=== PATIENT | female | born 1940 | race Caucasian/White ===

== ENCOUNTER 2018-04-16 13:07 | Emergency (ER) | payer MEDICARE ==
[2018-04-16 14:54] LABS: #Basophils 0.1 thou/uL (0.0-0.2); #Eosinphils 0.2 thou/uL (0.0-0.7); #Monocytes 0.5 thou/uL (0.11-0.59); #Neutrophils 9.1 thou/uL (1.40-6.50); %Basophils 0.8 % (0.0-1.0); %Eosinophils 1.3 % (0.0-10.0); %Lymphocytes 23.1 % (21.0-51.0); %Monocytes 4.2 % (0.0-10.0); %Neutrophils 70.6 % (42.0-75.0); Hemoglobin 14.4 g/dL (12.0-16.0); Mean Corpuscular HGB CONC 31.3 g/dL (32.0-36.0); Mean Corpuscular Hemoglobin 28.3 pg (27.0-31.0); Mean Corpuscular Volume 90.3 fL (78.0-98.0); Mean Platelet Volume 8.2 fL (7.4-10.4); Platelet Count 699 thou/uL (130-400); RBC Distribution Width 15.8 % (11.5-14.5); Red Blood Cell (RBC) Count 5.09 mill/uL (4.20-5.40); White Blood Cell (WBC) Count 12.9 thou/uL (4.8-10.8)
[2018-04-16 15:02] LABS: INR-International Normal Ratio 1.1; Prothrombin Time 13.9 SEC (12.0-14.7)
[2018-04-16 15:14] LABS: ALT (SGPT) 12 U/L (8-55); AST (SGOT) 15 U/L (5-34); Albumin 3.9 g/dL (3.4-4.8); Alkaline Phosphatase 87 U/L (40-150); Anion Gap 11 mmol/L (10-20); BUN (Urea Nitrogen) 13 mg/dL (9.8-20.1); Bilirubin, Total 0.5 mg/dL (0.2-1.2); Calc. Creatinine Clearance 0 mL/min (70-130); Calcium 9.7 mg/dL (7.8-10.44); Carbon Dioxide 23 mmol/L (23-31); Chloride 107 mmol/L (98-107); Estimated GFR-MDRD 71; Globulin 2.9 g/dL (2.4-3.5); Glucose 99 mg/dL (83-110); Lipase 12 U/L (8-78); Potassium 4.1 mmol/L (3.5-5.1); Protein, Total 6.8 g/dL (6.0-8.3); Sodium 137 mmol/L (136-145)
--- NOTE | 2018-04-16 15:15 | CT ---
CT BRAIN PERFORMED WITHOUT CONTRAST ENHANCEMENT: Date: 04/16/18 HISTORY: Patient fell on and hit head. Persistent pain. FINDINGS: There is generalized ventricular and sulcal prominence. There is decreased attenuation to the periven tricular white matter consistent with some chronic white matter change. There are no signs of intrace rebral hemorrhage or extra-axial fluid collections. The mastoid air cells and visualized sinuses are clear. IMPRESSION: No acute intracranial abnormalities. POS: [facility]
[2018-04-16 15:21] LABS: CKMB 1.2 ng/mL (0-6.6); Troponin I Less than 0.010 ng/mL (< 0.028)
--- NOTE | 2018-04-16 15:24 | CT ---
CT OF CERVICAL SPINE PERFORMED WITHOUT CONTRAST ENHANCEMENT: Date: 04/16/18 HISTORY: Patient fell on , now with neck pain. FINDINGS: Vertebral bodies are normal in height. There is degenerative disc narrowing at C3-4, C4-5, and C5-6. There are also degenerative facet changes present. The facets are in normal alignment. At the C3-4 le david, there is bilateral foraminal narrowing, which is worse on the left, and left-sided foraminal sakina rowing at C5-6. There is no significant central canal stenosis and there is no CT evidence for fractu re. There is some biapical parenchymal scarring noted and some emphysematous appearing lung changes. Slight heterogeneity to the thyroid gland is noted. IMPRESSION: No CT evidence of fracture of the cervical spine. Other incidental findings as noted above. POS: [facility]
--- NOTE | 2018-04-16 15:43 | RAD ---
FOUR VIEWS LEFT KNEE: DATE: 04/16/18. HISTORY: Fall from standing. Trauma to bilateral knees. FINDINGS: There is no fracture or dislocation seen. No joint space narrowing is seen involving the left knee. No joint effusion is appreciated on this exam. On the AP projection, there is a thin curvilinear me tallic density overlying the medial subcutaneous soft tissues left knee suggesting a metallic foreign body. This is only seen on AP and oblique images and not confirmed on the lateral projection. IMPRESSION: 1. No acute osseous abnormality. 2. Findings suggestive of a thin linear metallic foreign body in the medial subcutaneous soft tissue s left knee. Clinical correlation is suggested as this could be related to overlying artifact. POS: [facility]
--- NOTE | 2018-04-16 15:44 | RAD ---
RIGHT HAND 3 VIEWS: HISTORY: Fall with hand injury. FINDINGS: There are arthritic changes of the hand and wrist. There are no signs of fracture or dislocation. IMPRESSION: No evidence of fracture. POS: [facility]
--- NOTE | 2018-04-16 15:45 | RAD ---
RIGHT ANKLE 3 VIEWS: HISTORY: The patient fell while losing balance. Posttraumatic pain. FINDINGS: There is bone demineralization. No fracture. No cortical irregularity. No periosteal reaction. No significant soft tissue swelling. IMPRESSION: Mild bone demineralization. No posttraumatic change. POS: [facility]
--- NOTE | 2018-04-16 15:45 | RAD ---
RIGHT SHOULDER THREE VIEWS: HISTORY: Fall with shoulder pain. FINDINGS: There are arthritic changes of the AC and glenohumeral joint. The bones appear somewhat demineralize d. Surgical clips are seen in the axilla. There are no signs of fracture or dislocation. IMPRESSION: No evidence of fracture. POS: [facility]
--- NOTE | 2018-04-16 15:46 | RAD ---
AP PELVIS: HISTORY: Pelvic pain, status post fall. FINDINGS: The bones are demineralized. Arthritic changes of the lower lumbar spine and of both hips are presen t. No evidence of fracture of the bony pelvic ring. IMPRESSION: No evidence of fracture. POS: [facility]
--- NOTE | 2018-04-16 15:49 | RAD ---
FOUR VIEWS RIGHT KNEE: DATE: 04/16/18. HISTORY: Loss of balance and fell from standing on . Hit head on doorframe. FINDINGS: There is a linear metallic density overlying the soft tissues at the lateral aspect distal right lowe r extremity just above the level of the femoral condyles only seen on AP and oblique images. However , this has a similar appearance to metallic density seen on views of the left knee and this could pot entially be artifactual as opposed to a metallic foreign body. There is no fracture or dislocation involving the right knee. No joint effusion is appreciated. IMPRESSION: 1. Thin curvilinear metallic density overlying the medial subcutaneous soft tissues of the right kne e just above the level of the femoral condyles. However, a similar finding was seen on views of the left knee and this could be artifactual as opposed to a metallic foreign body, although this cannot b e entirely excluded. 2. No acute osseous abnormality right knee. POS: [facility]
[2018-04-16 16:17] LABS: Bilirubin Negative (Negative); Blood, Urine Small (Negative); Clarity CLOUDY (Clear); Glucose, Urine (Dipstick) Negative (Negative); Leukocyte Large (Negative); Nitrite Positive (Negative); Protein, Urine (Dipstick) Trace mg/dL (Neg-Trace); Specific Gravity, Urine 1.008 (1.002-1.036); Urobilinogen 0.2 mg/dL (0.2-1.0); pH, Urine 5.5 (5.0-9.0)
[2018-04-16 16:20] LABS: Bacteria/HPF 4+ HPF (None Seen); Hyaline Casts/LPF 7-10 HYALINE CAST LPF (0-3 Hyaline); Pathc Cast-AUWi Flag 0.87 (0-2.49); RBC/HPF 0-3 HPF (0-3); Squamous Epithelial 0-3 HPF (0-3)
--- NOTE | 2018-04-21 13:22 | EKG ---
Test Reason : Blood Pressure : / mmHG Vent. Rate : 071 BPM Atrial Rate : 071 BPM P-R Int : 172 ms QRS Dur : 138 ms QT Int : 440 ms P-R-T Axes : 024 -57 008 degrees QTc Int : 478 ms Normal sinus rhythm Left axis deviation Left ventricular hypertrophy with QRS widening Abnormal ECG Confirmed by VÍCTOR HU ([id number]), magazine editor GUEVARA CASTRO ([id number]) on 04/21/2018 1:22:00 PM Referred By: Confirmed By:VÍCTOR HU
== END 2018-04-16 17:31 | disposition home or self-care (01) ==
LOC: ERS 13:07
DX: M25.571 Pain in right ankle and joints of right foot (principal); M25.561 Pain in right knee; M25.562 Pain in left knee; M79.641 Pain in right hand; M25.511 Pain in right shoulder; N39.0 Urinary tract infection, site not specified; I10 Essential (primary) hypertension; W19.XXXA Unspecified fall, initial encounter
CPT/HCPCS: 36415; 70450; 72125; 72170; 80053; 81003; 81015; 82553; 83690; 84484; 85025; 85610; 85730; 87077; 87086; 87186; 93005

== ENCOUNTER 2018-04-23 03:21 | Inpatient (IN) | payer MEDICARE ==
[2018-04-23] MEDS ORDERED: Acetaminophen 500 MG TAB ONE (03:45)
[2018-04-23] MEDS ORDERED: Ondansetron HCl/PF 4 MG/2 ML Vial ONE (04:01)
[2018-04-23] MEDS ORDERED: Levofloxacin 500 mg/D5W 100 ml Premix Bag ONE (04:24)
[2018-04-23 04:44] LABS: Hemoglobin 14.4 g/dL (12.0-16.0); Mean Corpuscular HGB CONC 31.5 g/dL (32.0-36.0); Mean Corpuscular Hemoglobin 27.8 pg (27.0-31.0); Mean Corpuscular Volume 88.3 fL (78.0-98.0); Mean Platelet Volume 8.8 fL (7.4-10.4); Platelet Count 366 thou/uL (130-400); Red Blood Cell (RBC) Count 5.17 mill/uL (4.20-5.40); White Blood Cell (WBC) Count 9.1 thou/uL (4.8-10.8)
[2018-04-23 04:50] LABS: INR-International Normal Ratio 1.2; Prothrombin Time 15.4 SEC (12.0-14.7)
[2018-04-23 04:51] LABS: PTT 34.9 SEC (22.9-36.1)
[2018-04-23 04:56] LABS: CKMB 0.3 ng/mL (0-6.6); Troponin I Less than 0.010 ng/mL (< 0.028)
[2018-04-23 04:57] LABS: ALT (SGPT) 23 U/L (8-55); AST (SGOT) 25 U/L (5-34); Albumin 3.7 g/dL (3.4-4.8); Alkaline Phosphatase 124 U/L (40-150); Anion Gap 13 mmol/L (10-20); BUN (Urea Nitrogen) 18 mg/dL (9.8-20.1); Bilirubin, Total 1.5 mg/dL (0.2-1.2); CK (CPK) 36 U/L (29-168); Calc. Creatinine Clearance 0 mL/min (70-130); Calcium 9.2 mg/dL (7.8-10.44); Carbon Dioxide 23 mmol/L (23-31); Chloride 101 mmol/L (98-107); Estimated GFR-MDRD 73; Globulin 2.8 g/dL (2.4-3.5); Glucose 157 mg/dL (83-110); Magnesium 1.6 mg/dL (1.6-2.6); Potassium 3.6 mmol/L (3.5-5.1); Protein, Total 6.5 g/dL (6.0-8.3); Sodium 133 mmol/L (136-145)
[2018-04-23 05:00] LABS: Band 4 % (5-11); Lymphocytes 6 % (21-51); MDiff Complete? YES; Monocytes 4 % (0-10); Neutrophil 86 % (42-75); PLT Morphology Comment Appears Adequate; RBC Morphology Normal
[2018-04-23 05:16] LABS: Bilirubin Negative (Negative); Blood, Urine Negative (Negative); Clarity CLOUDY (Clear); Glucose, Urine (Dipstick) Negative (Negative); Leukocyte Negative (Negative); Nitrite Negative (Negative); Protein, Urine (Dipstick) 100 mg/dL (Neg-Trace); Urobilinogen 0.2 mg/dL (0.2-1.0); pH, Urine 5.5 (5.0-9.0)
[2018-04-23 05:19] LABS: Bacteria/HPF None Seen HPF (None Seen); Pathc Cast-AUWi Flag 2.18 (0-2.49); RBC/HPF 0-3 HPF (0-3)
[2018-04-23 05:21] LABS: Yeast-AUWi Flag 164.7 (0-25.0)
[2018-04-23 05:24] LABS: Specific Gravity, Urine 1.053 (1.002-1.036)
--- NOTE | 2018-04-23 05:32 | PDOC.FPRHP ---
Addendum entered and electronically signed by Lucas Artis MD 04/23/18 08:00: Addendum upper level attestation 77F with 1 week history of right leg weakness and generalized malaise. She was seen 1 week ago for malaise. She was found to have a UTI and treated for it. She now denies any symptom with dysuria or frequency. Today, she came in because she had a mechanical fall. She felt her right leg give out. She fell to her knee, did not hit her head, had no loss of consciousness. She was then brought to ER. She incidentally complains about mild abd pain. ER did a CT scan of abdomen that found diverticulitis and cystitis. CT brain found no abnormaliteis. Pertinent Physical Gen: Alert, oriented CV: RRR 2/6 systolic murmur, right sided bruit HEENT: Dry mucosal membrane Resp: CTA bilaterally Neuro: CN II-XII grossly intact, Strength 4/5 in right LE, sensation grossly intact 1. RLE weakness - Stroke rule out. As patient has recent CT with contrast, will obtain MRI without contrast and carotid doppler. Consult Neuro for recs. NIHSS assessment q 4hr. Will start on Aspirin and atorvastatin 2. Diverticulitis - Will treat on monotheapy of zosyn at this time, consider transition to augmentin for finishing PO course 3. Crohns disease - Known issue, not in crohns flare at this time. CT abd/pelvis found no sign of this. 4. Polycethemia vera - Continue hydroxyurea. Risk factor for stroke. 5. Hypovolemia - Patient urine SG is elevated and dry mucosal membrane Plan to encourage increased oral intake 6. HTN - Hx of HTN. At this time, allow permissive HTN. Original Note: - History of Present Illness Chief Complaint: Weakness History of Present Illness: Ms. Dowling presents to the ED today with a 1 week history of Leg weakness and general fatigue. She was seen in the ED 7 days ago and treated for a UTI. She denies having any burning with urination or frequency. She does report some abdominal pain and vomiting, a headache, fever/chills, and neck pain. Denies diarrhea or constipation, syncope, dysequilibrium, chest pain, or palpitations. She recently moved here to live in her daughters house while [place]. She has a history of crohns disease with a total colectomy, diverticulosis. ED Course: CT brain/abdomen/pelvis, CBC/CMP, UA with Cx, PTT/PT/INR, BCx, EKG, BNP, LA - History PMHx: Crohn's, PCV PSHx: colectomy, cholecystectomy, FHx: MS Social: recently moved from [place] - Review of Systems General: reports: fever/chills, weight/appetite/sleep changes Eyes: denies: vision changes ENT: denies: nasal congestion Respiratory: denies: cough, shortness of breath Cardiovascular: denies: chest pain, palpitation Gastrointestinal: reports: nausea, vomiting. denies: diarrhea, constipation Genitourinary: reports: incontinence. denies: dysuria, polyuria Skin: denies: rashes, lesions, jaundice Musculoskeletal: reports: pain, tenderness Neurological: reports: weakness. denies: numbness, syncope - Vital signs BP: [139/72] HR: [90] RR: [16] Tmax: [101.2] Pox: [96]% on [RA] Wt: [81.65kg] - Physical Exam Constitutional: NAD, awake, alert and oriented (x3) HEENT: normocephalic and atraumatic, EOMI, grossly normal vision, grossly normal hearing, MMM Neck: supple, trachea midline Chest: no-tender to palpation, no lesions Heart: RRR, other (systolic murmur) Lungs: CTAB, no respiratory distress, good air movement Abdomen: soft, bowel sounds present, other (tenderness over lower abdomen) Musculoskeletal: normal structure, ROM grossly normal Neurological: CN II-XII intact, other (R LE 4/5 strength) Skin: no rash/lesions, good turgor Heme/Lymphatic: no unusual bruising or bleeding, no petechia Psychiatric: normal mood and affect FMR H&P: Results - Labs Result Diagrams: 04/23/18 04:17 04/23/18 04:17 Lab results: WBC 9.1 thou/uL (4.8-10.8) 04/23/18 04:17 Hgb 14.4 g/dL (12.0-16.0) 04/23/18 04:17 Hct 45.6 % (36.0-47.0) 04/23/18 04:17 MCV 88.3 fL (78.0-98.0) 04/23/18 04:17 Plt Count 366 thou/uL (130-400) 04/23/18 04:17 Band Neuts % (Manual) 4 % (5-11) L 04/23/18 04:17 Sodium 133 mmol/L (136-145) L 04/23/18 04:17 Potassium 3.6 mmol/L (3.5-5.1) 04/23/18 04:17 Chloride 101 mmol/L (98-107) 04/23/18 04:17 Carbon Dioxide 23 mmol/L (23-31) 04/23/18 04:17 BUN 18 mg/dL (9.8-20.1) 04/23/18 04:17 Creatinine 0.77 mg/dL (0.6-1.1) 04/23/18 04:17 Glucose 157 mg/dL (83-110) H 04/23/18 04:17 Lactic Acid 1.0 mmol/L (0.5-2.2) 04/23/18 04:17 Calcium 9.2 mg/dL (7.8-10.44) 04/23/18 04:17 Total Bilirubin 1.5 mg/dL (0.2-1.2) H 04/23/18 04:17 AST 25 U/L (5-34) 04/23/18 04:17 ALT 23 U/L (8-55) 04/23/18 04:17 Alkaline Phosphatase 124 U/L (40-150) 04/23/18 04:17 Creatine Kinase 36 U/L (29-168) 04/23/18 04:17 CK-MB (CK-2) 0.3 ng/mL (0-6.6) 04/23/18 04:17 B-Natriuretic Peptide 118.8 pg/mL (0-100) H 04/23/18 04:17 Serum Total Protein 6.5 g/dL (6.0-8.3) 04/23/18 04:17 Albumin 3.7 g/dL (3.4-4.8) 04/23/18 04:17 FMR H&P: A/P - Problem List (1) Weakness of right leg Current Visit: Yes Status: Acute Code(s): R29.898 - OT SYMPTOMS AND SIGNS INVOLVING THE MUSCULOSKELETAL SYSTEM (2) Diverticulitis Current Visit: Yes Status: Acute Code(s): K57.92 - DVTRCLI OF INTEST, PART UNSP, W/O PERF OR ABSCESS W/O BLEED (3) Crohn's disease Current Visit: Yes Status: Acute Code(s): K50.90 - CROHN'S DISEASE, UNSPECIFIED, WITHOUT COMPLICATIONS (4) Polycythemia vera Current Visit: Yes Status: Acute Code(s): D45 - POLYCYTHEMIA VERA - Plan 1. RLE weakness - present for one week, possibility of ischemic stroke - MRI brain - neurology consult - monitor vital signs, permissive hypertension - outside of TPN windo - consider ASA, statin treatment - order lipids 2. Diverticulitis - hx of diverticulosis and crohn's, +CT abdomen, no abcess - allergic to metronidazole, IV zosyn 3.3756 g q6hr - consider GI consult for possible Colovesicular fistula causing UTI 3. Crohns disease - chronic in nature, untreated 4. Polycethemia vera - controlled, continue home meds 5. volume depleted - NS 120ml/hr - monitor vital signs - repeat CBC/CMP in 24 hrs Disposition/LOS: stroke r/o, treat for diverticulitis, observation on stroke floor, possible dc tomorrow FMR H&P: Upper Level - Plan Date/Time: 04/23/18 [id number] I, [], have evaluated this patient and agree with findings/plan as outlined by recruitment internship resident. Pertinent changes/additions are listed here. 1. RLE weakness 2. Diverticulitis 3. Crohns disease 4. Polycethemia vera 5. volume depleted 6. HTN Attending Addendum - Attending Addendum Date/Time: 04/23/18 1001 I personally evaluated the patient and discussed the management with Dr. Gore. I agree with the History, Examination, Assessment and Plan documented above with any addition or exceptions noted below. The patient presents with worsening weakness. Pt is a poor historian and has trouble with recall during my visit. She states her rle has been weak for 10 years but within past week has worsened. She began vomiting this morning during our interview. She will have mri, carotid doppler and echo for stroke workup. PT/OT consult. Diverticulitis noted on CT scan. Treating with zosyn. Pt unable to lift right leg off of bed.
[2018-04-23 05:39] LABS: Trichomonas/HPF None Seen HPF (None Seen); Yeast-All Forms None Seen HPF (None Seen)
[2018-04-23 05:40] LABS: Hyaline Casts/LPF 0-3 HYALINE CAST LPF (0-3 Hyaline)
--- NOTE | 2018-04-23 07:47 | RAD ---
FOUR VIEWS RIGHT KNEE: INDICATION: Fall with fever. COMPARISON: Comparison from 04/16/18 is available. FINDINGS/IMPRESSION: No acute fracture or subluxation is evident. There is stable diffuse osteopenia. The same curviline ar density previously seen overlying the anterolateral soft tissues is likely related to overlying duran rface artifact or prior foreign body that had been removed. No acute osseous abnormality is evident. POS: [facility]
--- NOTE | 2018-04-23 07:48 | RAD ---
THREE VIEWS OF THE RIGHT ANKLE: INDICATION: History of fall with fever. COMPARISON: Prior exam dated 04/16/18. FINDINGS/IMPRESSION: No definite acute fracture or subluxation is evident. The visualized hindfoot appears within normal limits. POS: [facility]
--- NOTE | 2018-04-23 07:49 | RAD ---
AP VIEW OF THE CHEST: INDICATION: History of fall and fever. COMPARISON: None. FINDINGS: No consolidation is evident. No pleural effusion is present. Heart size is accentuated by exam tech nique. Surgical clips are seen within the right axillary region. No acute osseous abnormality is ev ident. IMPRESSION: No definite acute cardiopulmonary abnormality. POS: [facility]
--- NOTE | 2018-04-23 09:40 | CT ---
PRELIMINARY REPORT/[facility]/EMERGENTY AFTER-HOURS PROCEDURE CT Abdomen and Pelvis With Intravenous Contrast EXAM DATE/TIME: 04/23/2018 4:23 AM CLINICAL HISTORY: 77 years old, female; Signs and symptoms; Nausea and vomiting; Prior surgery; Patient HX: Er 3; Pt C/ O n/v and unable to eat, as well as weakness to r leg. Pt also fell 04/13 and has had neck pain since, pt was seen in er after that fall on the and dx with uti. Surgical HX of colectomy of large int estine. Verified on 04/23/18. , Surgical history of cholecystectomy, surgical history of sect ion, notes: X1; Additional info: exam attempted twice due to iv leak during first attempt, iv stopp ed after 20-25 ml, iv was fixed and additional 70 ml of iv contrast were given TECHNIQUE: Axial computed tomography images of the abdomen and pelvis with intravenous contrast. Coronal reforma tted images were created and reviewed. COMPARISON: No relevant prior studies available. FINDINGS: Lung bases: Bibasilar dependent atelectasis ABDOMEN: Liver: Hepatomegaly measuring 18 cm. Gallbladder and bile ducts: Previous cholecystectomy with mild intrahepatic biliary dilatation. Pancreas: Unremarkable. No mass. No ductal dilation. Spleen: Splenomegaly measuring 16 cm Adrenals: Unremarkable. No mass. Kidneys and ureters: Bilateral renal hypodensities measuring up to 1.6 cm. Bilateral renal cortical s carring. No hydronephrosis. Stomach and bowel: Mildly prominent fluid filled small bowel loops without convincing evidence of sma ll bowel obstruction. There is colonic diverticulosis. Rectosigmoid anastomosis. There is mild infiltration about the proximal sigmoid colon. No mucosal thickening. PELVIS: Appendix: The appendix is normal. Bladder: Urinary bladder is under distended and thickened. There are pelvic inflammatory changes cent ered about the urinary bladder. Reproductive: Unremarkable as visualized. ABDOMEN and PELVIS: Intraperitoneal space: Unremarkable. No free air. No significant fluid collection. Bones/joints: There are degenerative changes involving the spine. No acute fracture. No dislocation. Soft tissues: Right breast prosthesis. Several small ventral hernias contain fat. Vasculature: Vascular calcification. No abdominal aortic aneurysm. Lymph nodes: Unremarkable. No enlarged lymph nodes. IMPRESSION: Findings concerning for mild acute diverticulitis involving the proximal sigmoid colon. No complicati ng features. Inflammatory changes about the urinary bladder compatible with cystitis. Additional findings as above. Thank you for allowing us to participate in the care of your patient. Dictated and Authenticated by: Miguel Antunez MD 04/23/2018 5:01 AM Central Time ([place] & [place]) FINAL REPORT CT OF THE ABDOMEN AND PELVIS WITH IV CONTRAST: INDICATION: Nausea and vomiting with a history of fall. FINDINGS: There is hepatosplenomegaly as reported in the preliminary findings. There is cholecystectomy change . There are bilateral renal hypodensities suspicious for cysts. There is 1 hyperdense lesion seen exophytically off the right mid kidney posteriorly measuring 2 cm t hat cannot be further characterized. There is a moderate amount of retained stool within the colon. There is some wall thickening and per icolonic inflammatory stranding involving the sigmoid colon just proximal to an area of anastomotic s uture line. There is wall thickening involving the bladder with surrounding inflammatory change. IMPRESSION: 1. I agree with the preliminary report provided. Findings are suspicious for cystitis as well as a noncomplicated sigmoid diverticulitis. 2. Hepatosplenomegaly. 3. Exophytic hyperdense lesion off the superior to mid aspect of the right kidney required further e valuation. Renal ultrasound may be helpful for additional characterization. CODE T POS: [facility]
--- NOTE | 2018-04-23 09:42 | CT ---
PRELIMINARY REPORT/[facility]/EMERGENTY AFTER-HOURS PROCEDURE CT Head Without Intravenous Contrast EXAM DATE/TIME: 04/23/2018 4:19 AM CLINICAL HISTORY: 77 years old, female; Injury or trauma; Fall; Initial encounter; Abrasion; Not specified; Patient HX: Ems reports pt got up to use restroom and fell down this evening around 1am due to weakness. C/O n/v and unable to eat, as well as weakness to r leg. Pt also fell 04/13 and has had neck pain since. TECHNIQUE: Axial computed tomography images of the head/brain without intravenous contrast. COMPARISON: No relevant prior studies available. FINDINGS: Brain: Decreased attenuation of the supratentorial white matter is likely secondary to chronic microv ascular ischemia. Small calcification at the left centrum semiovale, likely dystrophic. No hemorrhage . Ventricles: Ventricular and subarachnoid spaces are age appropriate. Bones/joints: Unremarkable. No acute fracture. Soft tissues: Unremarkable. Vasculature: Intracranial vascular calcification. Sinuses: Mild ethmoid sinus disease. Mastoid air cells: Unremarkable as visualized. No mastoid effusion. IMPRESSION: No acute intracranial abnormality. Thank you for allowing us to participate in the care of your patient. Dictated and Authenticated by: Miguel Antunez MD 04/23/2018 4:39 AM Central Time ([place] & [place]) FINAL REPORT CT OF THE BRAIN WITHOUT CONTRAST: INDICATION: History of fall and altered mental status. COMPARISON: Prior exam dated 04/06/18. IMPRESSION: I agree with the preliminary report provided. No acute intracranial abnormality is evident. Chronic small-vessel white matter ischemic change appears similar to the most recent comparison dated 8. POS: [facility]
[2018-04-23] MEDS: Sodium Chloride 0.9% 1,000 ML IV SCH ×3 (10:43→23:56)
[2018-04-23] MEDS: Ondansetron ODT 4 MG TAB PO PRN (10:43)
[2018-04-23] MEDS: Enoxaparin Sodium 40 MG/0.4 ML SYRINGE SC SCH (10:43)
[2018-04-23] MEDS: Acetaminophen 325 MG TAB PO PRN (10:43)
[2018-04-23] MEDS: Aspirin 81 mg Enteric Coated Tablet PO SCH (10:43)
[2018-04-23 10:58] VITALS: BMI 27.4
[2018-04-23 11:12] LABS: Lactic Acid 2.1 mmol/L (0.5-2.2)
[2018-04-23] MEDS ORDERED: Ondansetron HCl/PF 4 MG/2 ML Vial IVP PRN (11:18)
[2018-04-23] MEDS ORDERED: ISOVUE-370 76%-LOCM 1 ML ONE (12:19)
[2018-04-23] MEDS ORDERED: Labetalol HCl 100 MG/20 ML VIAL SLOW IVP PRN (13:37)
[2018-04-23] MEDS: Piperacillin/Tazobactam 3.375 GM in Sodium Chloride 0.9% 100 ML IVPB SCH ×3 (13:59→23:58)
--- NOTE | 2018-04-23 17:23 | MRI ---
MRI BRAIN WITHOUT CONTRAST: HISTORY: Altered mental status. Fall this morning. Generalized weakness. COMPARISON: None. TECHNIQUE: MRI brain is performed without intravenous Gadolinium administration. Multisequential, multiplanar i maging is performed. FINDINGS: The calvarium has a normal T1 marrow signal intensity. Midline brain parenchymal structures are unre markable. No hemorrhage on the axial gradient echo sequence. Age appropriate atrophy. Cortical mccarthy white matter differentiation is preserved. Ventricles and duran lci are patent and symmetric. There are T2 and FLAIR white matter hyperintensities due to chronic small vessel ischemic change. There is FLAIR hyperintensity with associated restricted diffusion along the posterior right corpus c allosum, posterior left lentiform nucleus, and in the left frontal subcortical white matter. Multifo lisette small infarcts are favored. There is associated restricted diffusion. Mild mucosal thickening of the paranasal sinuses. Central arterial flow voids are maintained. 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 POS: [facility]
--- NOTE | 2018-04-23 18:08 | ULT ---
BILATERAL CAROTID DUPLEX ULTRASOUND: HISTORY: Right-sided carotid bruit. TECHNIQUE: Faust-scale ultrasound with color-flow and spectral Doppler imaging of the extracranial carotid artery system is performed bilaterally. FINDINGS: There is plaque formation on both sides. The peak systolic velocity in the right ICA measures 104 cm per second with an end-diastolic velocity of 14 cm per second and a systolic ratio of 0.54. The peak systolic velocity in the left ICA measures 112 cm per second with an end-diastolic velocity of 25 cm per second and a systolic ratio of 0.82. Flow in both vertebral arteries remains antegrade. IMPRESSION: No evidence of hemodynamically significant stenosis. POS: [facility]
[2018-04-23] MEDS: Prevnar 13-Val Conj/PF 0.5 ML SYRINGE IM ONE ×2 (18:44→18:49)
[2018-04-23] MEDS: Atorvastatin Calcium 40 MG TAB PO SCH (20:10)
--- NOTE | 2018-04-24 02:07 | CON ---
DATE OF CONSULTATION: 04/23/2018 REFERRING PHYSICIAN: Rigo Gore DO REASON FOR CONSULTATION: Recent fall and right lower extremity weakness. HISTORY OF PRESENT ILLNESS: Ms. Dowling is a pleasant, 77-year-old, female, who has been consulted for evaluation of recent fall and the right lower extremity weakness. History is obtained from patient's medical chart as well as patient. She reports that she has a history of right leg giv ing out on and off for the past 20 years. She reports that she was admitted to the hospital recently for her right lower extremity weakness, at which time, she had a pelvic x-ray, cerebral spine x-ray done, which was normal, and then she was discharged to home. She reports that today she came in sharon use she fell down as her right leg give out on her, which this prompted her to present to the [facility] Emergency Room. She currently denies any headache, chest pain, palpitation, numbness, tingling, weakness, dysarthria or dysphagia. PAST MEDICAL HISTORY: Significant for Crohn disease. PAST SURGICAL HISTORY: Significant for colectomy, cholecystectomy, . FAMILY HISTORY: Significant for MS. SOCIAL HISTORY: She denies smoking, alcohol use, or illicit drug use. CURRENT MEDICATIONS: Please review MAR. ALLERGIES: Include METRONIDAZOLE. REVIEW OF SYSTEMS: As mentioned in the HPI, otherwise negative. PHYSICAL EXAMINATION: VITAL SIGNS: Blood pressure 165/71, pulse of 85, temperature of 98.5, respirations 16, O2 sats of 91 % on room air. GENERAL: Well developed, well nourished, female, in no apparent distress. RESPIRATORY: Clear to auscultation bilaterally. CARDIOVASCULAR: Regular rate and rhythm. NEUROLOGIC: Mental status: The patient is awake, alert, oriented x3. Speech and language: Fluent speech. Cranial nerves: Pupils are 3 mm and reactive. Visual pascual are intact. Extraocular muscl es are intact. Visual pascual are intact. Face is symmetric. Tongue and uvula midline. Motor exam showed normal tone and bulk with a 5/5 strength in both upper and lower extremities. Sensory: Sensa tion is intact and symmetric. Deep tendon reflex is 2+ reflexes in both upper and lower extremities. Babinski: Plantar responses flexion bilaterally. Coordination intact to [id number] and fi nger tapping bilaterally. LABORATORY DATA: Labs are reviewed, which included CBC, CMP, urinalysis, which is significant for so dium of 133. Total bilirubin of 1.5. BNP of 118.8, otherwise negative. IMAGING STUDIES: MRI of brain without contrast was reviewed. Official report is still pending. I jayden miller reviewed the scan, which did show a diffusion restriction at the right posterior parietal region and periventricularly as well as in the left basal ganglia. IMPRESSION: 1. Acute right bilateral ischemic infarct. 2. Hypertension. PLAN: Ms. Dowling is a pleasant, 77-year-old, female, presented after falling down and ri ght leg weakness. She did have MRI of brain, which does show an acute ischemic infarct involving bot h the cerebral hemisphere. This is likely cardioembolic in nature. I am waiting for the official re port by Radiology. If it does show bilateral ischemic infarct, then patient will need thoracic and t ransesophageal echocardiogram as well as possible LINQ device placement to rule out paroxysmal atrial fibrillation. I would recommend increasing her aspirin to 325 mg daily for secondary stroke prevent ion. Consult PT, OT, speech therapy. Continue supportive care. Thank you for consultation.
--- NOTE | 2018-04-24 05:28 | PDOC.FM ---
- Subjective Subjective: Pt reports she did well overnight. She denies cp, sob, n/v. She states she just feels unwell and weak. She denies any focal weakness. - Objective MAR Reviewed: Yes Vital Signs & Weight: Vital Signs (12 hours) Temp Pulse Resp BP Pulse Ox 04/24/18 04:00 99.3 F 86 16 152/59 H 98 04/24/18 00:00 99.8 F H 89 16 165/63 H 92 L 04/23/18 20:00 99.9 F H 89 16 151/54 H 92 L Weight Weight 75.432 kg I&O: 04/22/18 04/23/18 04/24/18 06:59 06:59 06:59 Intake Total 390 Balance 390 Result Diagrams: 04/24/18 05:13 04/24/18 04:52 <Paddy Giang - Last Filed: 04/24/18 09:08> - Objective Vital Signs & Weight: Vital Signs (12 hours) Temp Pulse Resp BP BP BP Pulse Ox 04/24/18 15:39 99.2 F 79 21 H 172/62 H 94 L 04/24/18 11:34 99.4 F 82 20 145/64 H 94 L 04/24/18 09:35 153/62 H 154/63 H 04/24/18 08:55 94 L 04/24/18 08:25 98.6 F 86 19 155/61 H 87 L Weight Weight 75.432 kg I&O: 04/23/18 04/24/18 04/25/18 06:59 06:59 06:59 Intake Total 2370 Balance 2370 Result Diagrams: 04/24/18 05:13 04/24/18 04:52 <Betty Portillo - Last Filed: 04/24/18 16:10> Phys Exam - Physical Examination Constitutional: NAD HEENT: moist MMs Neck: no JVD Respiratory: no wheezing, clear to auscultation bilateral Cardiovascular: RRR 2/6 systolic murmur Gastrointestinal: soft, non-tender, no distention Musculoskeletal: no edema, pulses present Pt has 3-4/5 strength in right LE, 4/5 in right UE, 5/5 on left. Neurological: non-focal, normal sensation, moves all 4 limbs Psychiatric: normal affect, A&O x 3 Mini mental status exam was 28 Skin: cap refill <2 seconds <Paddy Giang - Last Filed: 04/24/18 09:08> Dx/Plan (1) Acute CVA (cerebrovascular accident) Code(s): I63.9 - CEREBRAL INFARCTION, UNSPECIFIED Status: Acute (2) HTN (hypertension) Code(s): I10 - ESSENTIAL (PRIMARY) HYPERTENSION Status: Acute (3) Crohn's disease Code(s): K50.90 - CROHN'S DISEASE, UNSPECIFIED, WITHOUT COMPLICATIONS Status: Acute (4) Diverticulitis Code(s): K57.92 - DVTRCLI OF INTEST, PART UNSP, W/O PERF OR ABSCESS W/O BLEED Status: Acute (5) Polycythemia vera Code(s): D45 - POLYCYTHEMIA VERA Status: Acute - Plan Plan: This is a 77 yo female with a PMH of Crohns disease, polycethemia vera, and HTN CVA with right LE weakness -Pt had MRI revealing small focal infarcts. Stroke team has been consulted. We are currently allowing for permissive HTN. Neurology has been consulted and recommends RAQUEL and possible LINQ devise to r/o paroxysmal atrial fibrillation. He also recommended increasing aspirin to 325. -The nature of pt's MRI may be consistent with cardioembolic causes. Pt. spiked an isolated fever of 102.6 yesterday despite having a dose of levoquin in the ED. We have a heightened suspicion for endocarditis vs. afib. Pt. has been changed to inpatient. Diverticulitis -Confirmed by abdominal CT. We are treating with zosyn as monotherapy. The CT currently does not reveal an abscess, however if pt. has another episode of fever while on abx, I would consider repeating abdominal CT looking for a cause. There was initially a concern for colovesicular fistula however there are no signs of air in pt's bladder and urine is relatively clean. Crohns disease -Aware, currently not in a flare Polycethemia vera -Controlled. We will continue her home meds. This may be a source for her cva. Volume depleted -Resloved, pt. came in with physical exam and urine consistent with volume depletion. She has received fluids as well as PO intake. HTN -We are allowing for permissive htn. Pt. has PRN available for SBP >220 and DBP >110 Code: DNR Prophylaxis: debranox Family: Attempted to contact daughter yesterday. Per pt, she was by multiple times Disposition: Home in 2-3 days <Paddy Giang - Last Filed: 04/24/18 09:08> (1) Weakness of right leg Code(s): R29.898 - OTH SYMPTOMS AND SIGNS INVOLVING THE MUSCULOSKELETAL SYSTEM Status: Acute (2) Diverticulitis Code(s): K57.92 - DVTRCLI OF INTEST, PART UNSP, W/O PERF OR ABSCESS W/O BLEED Status: Acute (3) Crohn's disease Code(s): K50.90 - CROHN'S DISEASE, UNSPECIFIED, WITHOUT COMPLICATIONS Status: Acute (4) Polycythemia vera Code(s): D45 - POLYCYTHEMIA VERA Status: Acute <Betty Portillo - Last Filed: 04/24/18 16:10> Attending Addendum - Attending Addendum Date/Time: 04/24/18 1606 I personally evaluated the patient and discussed the management with Dr. Giang. I agree with the History, Examination, Assessment and Plan documented above with any addition or exceptions noted below. The patient's MRI was consistent with a stroke. Will consult cards for a RAQUEL. Continuing therapy and antibiotics. <Betty Portillo - Last Filed: 04/24/18 16:10>
[2018-04-24 05:45] LABS: Cardiac Risk 5.2 (Less than 4.5)
[2018-04-24 05:53] LABS: Band 14 % (5-11); Eosinophils 2 % (0-10); Hemoglobin 12.7 g/dL (12.0-16.0); Lymphocytes 15 % (21-51); MDiff Complete? YES; Mean Corpuscular HGB CONC 31.8 g/dL (32.0-36.0); Mean Corpuscular Hemoglobin 28.2 pg (27.0-31.0); Mean Corpuscular Volume 88.8 fL (78.0-98.0); Monocytes 3 % (0-10); Neutrophil 65 % (42-75); PLT Morphology Comment Appears Adequate; Platelet Count 303 thou/uL (130-400); RBC Distribution Width 16.1 % (11.5-14.5); White Blood Cell (WBC) Count 8.2 thou/uL (4.8-10.8)
[2018-04-24 05:53] LABS: Anion Gap 11 mmol/L (10-20); BUN (Urea Nitrogen) 16 mg/dL (9.8-20.1); Calc. Creatinine Clearance 68 mL/min (70-130); Calcium 8.7 mg/dL (7.8-10.44); Carbon Dioxide 23 mmol/L (23-31); Chloride 102 mmol/L (98-107); Estimated GFR-MDRD 68; Glucose 117 mg/dL (83-110); Potassium 3.1 mmol/L (3.5-5.1); Sodium 133 mmol/L (136-145)
[2018-04-24 05:55] LABS: Bilirubin, Direct 0.5 mg/dL (0.1-0.3); Bilirubin, Total 1.2 mg/dL (0.2-1.2)
[2018-04-24] MEDS: Piperacillin/Tazobactam 3.375 GM in Sodium Chloride 0.9% 100 ML IVPB SCH ×3 (06:34→18:10)
[2018-04-24] MEDS: Hydroxyurea 500 MG CAP PO SCH (10:19)
[2018-04-24] MEDS: Enoxaparin Sodium 40 MG/0.4 ML SYRINGE SC SCH (10:20)
[2018-04-24] MEDS: Aspirin 81 mg Enteric Coated Tablet PO SCH (10:24)
[2018-04-24] MEDS: Cholestyramine/Aspartame 4 gm Packet PO SCH (10:59)
[2018-04-24] MEDS: Sodium Chloride 0.9% 1,000 ML IV SCH ×2 (14:08→18:11)
[2018-04-24] MEDS ORDERED: NS IVPB SCH (18:15)
[2018-04-24] MEDS ORDERED: MAGNESIUM IVPB SCH (18:15)
[2018-04-24] MEDS ORDERED: Potassium Chloride 20 MEQ/100 ML PREMIX BAG IVPB SCH ×2 (18:30→23:15)
[2018-04-24] MEDS ORDERED: Potassium Chloride 20 MEQ TAB PO SCH (19:15)
[2018-04-24] MEDS: Atorvastatin Calcium 40 MG TAB PO SCH (20:48)
[2018-04-24] MEDS: Acetaminophen 325 MG TAB PO PRN (20:48)
--- NOTE | 2018-04-24 20:52 | CON ---
DATE OF CONSULT: 04/24/18 The patient is a pleasant 77-year-old woman who presents with weakness after falling. The patient melvin s a previous history of hypertension and a cerebrovascular accident. The patient was in her usual st ate of health when she suddenly became very weak and fell. She reports having weakness on her right side. The patient denies having any chest pain or palpitations. PAST MEDICAL HISTORY: 1. Crohn's disease. 2. Polycythemia vera. 3. Hypertension. 4. History of cerebrovascular accident. PAST SURGICAL HISTORY: History of cholecystectomy, colectomy, . SOCIAL HISTORY: Nonsmoker. FAMILY HISTORY: No strong family history of heart disease. ALLERGIES: FLAGYL. CURRENT MEDICATIONS: Cholestyramine 5 mg daily, Hydrea 500 mg daily. REVIEW OF SYSTEMS: Ten-point system otherwise unremarkable. No history of easy bruising or bleeding , bright red blood per rectum. PHYSICAL EXAMINATION: GENERAL: This is an elderly woman in no acute distress with a blood pressure of 172/62. NECK: No jugular venous distention. LUNGS: Clear to auscultation. HEART: Regular rate and rhythm, normal S1, S2. ABDOMEN: Nondistended. EXTREMITIES: Showed no edema. SKIN: Warm and dry. VASCULAR: Radial pulses are 2+. LABORATORY RESULTS: Her white blood count 8.2, hemoglobin 12.7, hematocrit 40.0, and platelets 303. Sodium was 133, potassium 3.1, chloride 102, bicarb 23, BUN was 16, creatinine 0.81. Her troponin was less than 0.01. EKG revealed normal sinus rhythm, right bundle branch block, left anterior fasci cular block and left ventricular hypertrophy. Brain MRI revealed a small focal infarcts. IMPRESSION: 1. Cerebrovascular accident. 2. Hypertension. 3. Crohn's disease. 4. Polycythemia vera. This patient presents with a recurrent cerebrovascular accident. From a cardiac standpoint, we will proceed as recommended by Neurology for a RAQUEL and a Linq placement. We will follow this patient with you through her hospitalization.
[2018-04-24] MEDS: Ondansetron ODT 4 MG TAB PO PRN (20:53)
[2018-04-25] MEDS: Sodium Chloride 0.9% 1,000 ML IV SCH ×2 (01:19→13:32)
[2018-04-25] MEDS: Piperacillin/Tazobactam 3.375 GM in Sodium Chloride 0.9% 100 ML IVPB SCH ×4 (01:19→20:53)
--- NOTE | 2018-04-25 06:45 | PDOC.FM ---
- Subjective Subjective: Pt. states she is feeling well this morning. She denies abdominal pain, dyspnea , or chest pain. Her nausea is minimal. - Objective MAR Reviewed: Yes Vital Signs & Weight: Vital Signs (12 hours) Temp Pulse Resp BP Pulse Ox 04/25/18 04:00 98.4 F 73 18 134/55 L 94 L 04/25/18 00:00 98.0 F 80 18 154/66 H 98 04/24/18 20:00 99.6 F 81 18 180/79 H 97 Weight Weight 75.432 kg I&O: 04/23/18 04/24/18 04/25/18 06:59 06:59 06:59 Intake Total 2370 2147 Balance 2370 2147 Result Diagrams: 04/24/18 05:13 04/25/18 07:02 <Paddy Giang - Last Filed: 04/25/18 13:14> - Objective Vital Signs & Weight: Vital Signs (12 hours) Temp Pulse Resp BP Pulse Ox 04/25/18 15:45 98.5 F 81 16 156/66 H 92 L 04/25/18 08:00 93 L Weight Weight 75.568 kg I&O: 04/24/18 04/25/18 04/26/18 06:59 06:59 06:59 Intake Total 2370 3137 Balance 2370 3137 Result Diagrams: 04/24/18 05:13 04/25/18 16:09 <Betty Portillo - Last Filed: 04/25/18 17:11> Phys Exam - Physical Examination Constitutional: NAD HEENT: moist MMs Respiratory: no wheezing, clear to auscultation bilateral Cardiovascular: RRR, no significant murmur Gastrointestinal: soft, positive bowel sounds Neurological: normal sensation, moves all 4 limbs Psychiatric: normal affect, A&O x 3 Skin: cap refill <2 seconds <Paddy Giang - Last Filed: 04/25/18 13:14> Dx/Plan (1) Acute CVA (cerebrovascular accident) Code(s): I63.9 - CEREBRAL INFARCTION, UNSPECIFIED Status: Acute (2) HTN (hypertension) Code(s): I10 - ESSENTIAL (PRIMARY) HYPERTENSION Status: Acute (3) Crohn's disease Code(s): K50.90 - CROHN'S DISEASE, UNSPECIFIED, WITHOUT COMPLICATIONS Status: Acute (4) Diverticulitis Code(s): K57.92 - DVTRCLI OF INTEST, PART UNSP, W/O PERF OR ABSCESS W/O BLEED Status: Acute (5) Polycythemia vera Code(s): D45 - POLYCYTHEMIA VERA Status: Acute - Plan Plan: This is a 77 yo female with a PMH of Crohns disease, polycethemia vera, and HTN CVA with right LE weakness -Pt had MRI revealing small focal infarcts. Stroke team has been consulted. We are currently allowing for permissive HTN. Neurology has been consulted and recommends RAQUEL and possible LINQ devise to r/o paroxysmal atrial fibrillation. He also recommended increasing aspirin to 325. -The nature of pt's MRI may be consistent with cardioembolic causes. Pt. spiked an isolated fever of 102.6 on 04/23 despite having a dose of levoquin in the ED. We have a heightened suspicion for endocarditis vs. afib. Pt. has been changed to inpatient. Pt. has RAQUEL today to further evaluate her heart. Pt. has had no recurrence of fever overnight. Diverticulitis -Confirmed by abdominal CT. We are treating with zosyn as monotherapy. The CT currently does not reveal an abscess, however if pt. has another episode of fever while on abx, I would consider repeating abdominal CT looking for a cause. There was initially a concern for colovesicular fistula however there are no signs of air in pt's bladder and urine is relatively clean. Crohns disease -Aware, currently not in a flare Polycethemia vera -Controlled. We will continue her home meds. This may be a source for her cva. Volume depleted -Resloved, pt. came in with physical exam and urine consistent with volume depletion. She has received fluids as well as PO intake. HTN -We are allowing for permissive htn. Pt. has PRN available for SBP >220 and DBP >110 Code: DNR Prophylaxis: lovenox Family: None at bedside, pt. gave verbal consent to discuss condition with daughter and on 04/24, I discussed with pt's daughter her condition and plan Disposition: Home in 2-3 days <Paddy Giang - Last Filed: 04/25/18 13:14> (1) Weakness of right leg Code(s): R29.898 - OTH SYMPTOMS AND SIGNS INVOLVING THE MUSCULOSKELETAL SYSTEM Status: Acute (2) Diverticulitis Code(s): K57.92 - DVTRCLI OF INTEST, PART UNSP, W/O PERF OR ABSCESS W/O BLEED Status: Acute (3) Crohn's disease Code(s): K50.90 - CROHN'S DISEASE, UNSPECIFIED, WITHOUT COMPLICATIONS Status: Acute (4) Polycythemia vera Code(s): D45 - POLYCYTHEMIA VERA Status: Acute <Betty Portillo - Last Filed: 04/25/18 17:11> Attending Addendum - Attending Addendum Date/Time: 04/25/18 1710 I personally evaluated the patient and discussed the management with Dr. Giang. I agree with the History, Examination, Assessment and Plan documented above with any addition or exceptions noted below. Pt with hypokalemia. Replacing with IV potassium. Pt had RAQUEL this morning, results pending. She is also getting linq recorder. PT hs recommended inpt rehab. Will place consult for case mgmt and inpt rehab screen. <Betty Portillo - Last Filed: 04/25/18 17:11>
[2018-04-25 07:46] LABS: Anion Gap 10 mmol/L (10-20); BUN (Urea Nitrogen) 16 mg/dL (9.8-20.1); Calc. Creatinine Clearance 59 mL/min (70-130); Calcium 8.5 mg/dL (7.8-10.44); Carbon Dioxide 22 mmol/L (23-31); Chloride 106 mmol/L (98-107); Estimated GFR-MDRD 58; Glucose 105 mg/dL (83-110); Sodium 135 mmol/L (136-145)
[2018-04-25 07:48] LABS: Cardiac Risk 5.6 (Less than 4.5)
[2018-04-25 07:51] LABS: Potassium 2.9 mmol/L (3.5-5.1)
[2018-04-25] MEDS ORDERED: Potassium Chloride 20 MEQ TAB PO SCH ×2 (08:00→15:45)
[2018-04-25] MEDS ORDERED: Potassium Chloride 10 MEQ in Premix Bag 1 BAG IVPB SCH (09:00)
[2018-04-25 09:18] LABS: Magnesium 2.2 mg/dL (1.6-2.6); Phosphorus 2.6 mg/dL (2.3-4.7)
[2018-04-25] MEDS: Potassium Citrate 10 MEQ TAB PO SCH ×3 (10:28→17:33)
[2018-04-25] MEDS: Hydroxyurea 500 MG CAP PO SCH (10:28)
[2018-04-25] MEDS: Aspirin 325 MG TAB PO SCH (10:29)
[2018-04-25] MEDS: Cholestyramine/Aspartame 4 gm Packet PO SCH (10:31)
[2018-04-25] MEDS: Potassium Chloride 20 MEQ in Premix Bag 1 BAG IVPB SCH ×2 (10:32→15:38)
[2018-04-25] MEDS: Enoxaparin Sodium 40 MG/0.4 ML SYRINGE SC SCH (10:34)
--- NOTE | 2018-04-25 11:35 | ECHO ---
TRANSESOPHAGEAL ECHOCARDIOGRAM: DATE OF PROCEDURE: 04/25/18 INDICATION: 77-year-old woman with a CVA. DESCRIPTION OF PROCEDURE: The patient was taken to the PACU. The patient was sedated by anesthesiology. A transesophageal probe was placed in the distal esophagus and stomach. Echocardiographic images were obtained. The transesophageal probe was removed. FINDINGS: 1. Normal left ventricular systolic function. 2. Normal mitral and aortic valve. 3. Mild mitral regurgitation. 4. Mild tricuspid regurgitation. 5. No thrombus noted in the left atrium or left atrial appendage. 6. Prominent eustachian valve. PFO noted by contrast bubble exam. 7. Atherosclerotic debris in the descending aorta. IMPRESSION: PFO noted by contrast bubble exam, with no thrombus noted in the left atrium or left atrial appendage .
[2018-04-25] MEDS ORDERED: Lidocaine 1% w/Epinephrine 1:100K 30 ML VIAL ONE (13:41)
[2018-04-25] MEDS ORDERED: PROPOFOL 200 MG/20 ML VIAL ONE (15:45)
[2018-04-25 16:29] LABS: Anion Gap 12 mmol/L (10-20); BUN (Urea Nitrogen) 17 mg/dL (9.8-20.1); Calc. Creatinine Clearance 50 mL/min (70-130); Calcium 9.2 mg/dL (7.8-10.44); Carbon Dioxide 21 mmol/L (23-31); Chloride 106 mmol/L (98-107); Estimated GFR-MDRD 48; Glucose 115 mg/dL (83-110); Sodium 136 mmol/L (136-145)
[2018-04-25 16:31] LABS: Potassium 2.9 mmol/L (3.5-5.1)
[2018-04-25] MEDS: Atorvastatin Calcium 40 MG TAB PO SCH (21:03)
--- NOTE | 2018-04-25 21:56 | CCL ---
DATE OF SERVICE: 04/25/2018. PROCEDURES PERFORMED: Insertion of permanent volleyball assembler [employer] model [id number] Linq, Reveal Linq serial number [id number]. INDICATION FOR DEVICE: Cryptogenic stroke. COMPLICATIONS: None apparent. SUMMARY: The patient was taken to the procedural area prepped and draped in the usual sterile fashion. Lidoca ine was utilized for local anesthesia. An incision was made at the fourth intercostal space in left pectoral region utilizing a skin puncture tool. The insertable volleyball assembler Linq was inserted thr ough the puncture site with the Linq insertion tool. Dermabond was then applied to the site in the u sual sterile fashion. RECOMMENDATIONS: 1. Continue monitoring. Dr. Beaulieu will take over monitoring for now. 2. May be discharged home anytime from the cardiac perspective.
[2018-04-25] MEDS: Acetaminophen 325 MG TAB PO PRN (23:18)
[2018-04-26] MEDS: Piperacillin/Tazobactam 3.375 GM in Sodium Chloride 0.9% 100 ML IVPB SCH ×3 (01:12→11:32)
--- NOTE | 2018-04-26 05:23 | PDOC.FM ---
- Subjective Subjective: Pt. reports mild abdominal pain. She denies nausea, vomiting, or dyspnea. She raised a concern regarding her medication as well as her blood levels. - Objective MAR Reviewed: Yes Vital Signs & Weight: Vital Signs (12 hours) Temp Pulse Resp BP Pulse Ox 04/26/18 04:00 97.7 F 73 18 155/53 H 92 L 04/26/18 00:00 99.3 F 87 18 156/78 H 95 04/25/18 21:03 95 04/25/18 20:00 99.4 F 93 18 159/79 H 95 Weight Weight 75.568 kg I&O: 04/24/18 04/25/18 04/26/18 06:59 06:59 06:59 Intake Total 2370 3137 Balance 2370 3137 Result Diagrams: 04/26/18 11:14 04/26/18 11:13 <Paddy Giang - Last Filed: 04/26/18 14:21> - Objective Vital Signs & Weight: Vital Signs (12 hours) Temp Pulse Resp BP Pulse Ox 04/26/18 11:41 97.9 F 82 16 176/91 H 95 04/26/18 07:46 98.2 F 79 16 151/65 H 92 L 04/26/18 04:00 97.7 F 73 18 155/53 H 92 L Weight Weight 76.34 kg I&O: 04/25/18 04/26/18 04/27/18 06:59 06:59 06:59 Intake Total 3137 480 Balance 3137 480 Result Diagrams: 04/26/18 11:14 04/26/18 11:13 <Betty Portillo - Last Filed: 04/26/18 15:11> Phys Exam - Physical Examination Constitutional: NAD HEENT: moist MMs Neck: no JVD Respiratory: no wheezing, clear to auscultation bilateral Cardiovascular: RRR, no significant murmur Gastrointestinal: soft, positive bowel sounds mild tenderness over right lower quadrant similar to yesterday Musculoskeletal: no edema, pulses present Neurological: moves all 4 limbs Psychiatric: A&O x 3 <Paddy Giang - Last Filed: 04/26/18 14:21> Dx/Plan (1) Acute CVA (cerebrovascular accident) Code(s): I63.9 - CEREBRAL INFARCTION, UNSPECIFIED Status: Acute (2) HTN (hypertension) Code(s): I10 - ESSENTIAL (PRIMARY) HYPERTENSION Status: Acute (3) Crohn's disease Code(s): K50.90 - CROHN'S DISEASE, UNSPECIFIED, WITHOUT COMPLICATIONS Status: Acute (4) Diverticulitis Code(s): K57.92 - DVTRCLI OF INTEST, PART UNSP, W/O PERF OR ABSCESS W/O BLEED Status: Acute (5) Polycythemia vera Code(s): D45 - POLYCYTHEMIA VERA Status: Acute - Plan Plan: This is a 77 yo female with a PMH of Crohns disease, polycethemia vera, and HTN CVA with right LE weakness -Pt had MRI revealing small focal infarcts. Stroke team has been consulted. We are currently allowing for permissive HTN. Neurology has been consulted and recommends ARQUEL and possible LINQ devise to r/o paroxysmal atrial fibrillation. He also recommended increasing aspirin to 325. -The nature of pt's MRI may be consistent with cardioembolic causes. Pt. spiked an isolated fever of 102.6 on 04/23 despite having a dose of levoquin in the ED. We have a heightened suspicion for endocarditis vs. afib. Pt. has been changed to inpatient. Pt. RAQUEL revealed normal mitral and aortic valve as well as a PFO. This PFO could suggest the source of her stroke patter. Pt. will hopefully be evaluated by PT today so that we can make a decision on her discharge planning. Pt. is currently on aspirin 325, we may add on further antiplatelet therapy as needed for prevention of future stroke with PFO. Pt. states that she will not take statin and reports that it is poison per her research. We discussed the risks and benefits and she still refused. Diverticulitis -Confirmed by abdominal CT. We are treating with zosyn as monotherapy. The CT currently does not reveal an abscess, however if pt. has another episode of fever while on abx, I would consider repeating abdominal CT looking for a cause. There was initially a concern for colovesicular fistula however there are no signs of air in pt's bladder and urine is relatively clean. Crohns disease -Aware, currently not in a flare Polycethemia vera -Controlled. We will continue her home meds. This may be a source for her cva. Volume depleted -Resloved, pt. came in with physical exam and urine consistent with volume depletion. She has received fluids as well as PO intake. HTN -We are allowing for permissive htn. Pt. has PRN available for SBP >220 and DBP >110 Code: DNR Prophylaxis: gail Family: None at bedside, pt. gave verbal consent to discuss condition with daughter and on 04/24, I discussed with pt's daughter her condition and plan Disposition: Home today <Paddy Giang - Last Filed: 04/26/18 14:21> (1) Weakness of right leg Code(s): R29.898 - OTH SYMPTOMS AND SIGNS INVOLVING THE MUSCULOSKELETAL SYSTEM Status: Acute (2) Diverticulitis Code(s): K57.92 - DVTRCLI OF INTEST, PART UNSP, W/O PERF OR ABSCESS W/O BLEED Status: Acute (3) Crohn's disease Code(s): K50.90 - CROHN'S DISEASE, UNSPECIFIED, WITHOUT COMPLICATIONS Status: Acute (4) Polycythemia vera Code(s): D45 - POLYCYTHEMIA VERA Status: Acute <Betty Portillo - Last Filed: 04/26/18 15:11> Attending Addendum - Attending Addendum Date/Time: 04/26/18 1510 I personally evaluated the patient and discussed the management with Dr. Giang. I agree with the History, Examination, Assessment and Plan documented above with any addition or exceptions noted below. The patient was found to have a PFO on RAQUEL. Will coordinate with cardiology on anticoagulation recs. Getting lower extremity dopplers to r/u DVT with her stoke and a pfo. Has been approved for inpt rehab. <Betty Portillo - Last Filed: 04/26/18 15:11>
[2018-04-26 06:32] LABS: Anion Gap 10 mmol/L (10-20); BUN (Urea Nitrogen) 17 mg/dL (9.8-20.1); Calc. Creatinine Clearance 50 mL/min (70-130); Calcium 9.2 mg/dL (7.8-10.44); Carbon Dioxide 23 mmol/L (23-31); Chloride 108 mmol/L (98-107); Estimated GFR-MDRD 48; Glucose 115 mg/dL (83-110); Potassium 3.4 mmol/L (3.5-5.1); Sodium 138 mmol/L (136-145)
[2018-04-26] MEDS: Aspirin 325 MG TAB PO SCH (08:24)
[2018-04-26] MEDS: Hydroxyurea 500 MG CAP PO SCH (08:25)
[2018-04-26] MEDS: Enoxaparin Sodium 40 MG/0.4 ML SYRINGE SC SCH (08:25)
[2018-04-26] MEDS: Potassium Citrate 10 MEQ TAB PO SCH ×3 (08:31→18:17)
[2018-04-26 11:21] LABS: Hemoglobin 12.9 g/dL (12.0-16.0); Mean Corpuscular HGB CONC 30.2 g/dL (32.0-36.0); Mean Corpuscular Hemoglobin 26.7 pg (27.0-31.0); Mean Corpuscular Volume 88.6 fL (78.0-98.0); Mean Platelet Volume 8.9 fL (7.4-10.4); Platelet Count 428 thou/uL (130-400); RBC Distribution Width 15.9 % (11.5-14.5); Red Blood Cell (RBC) Count 4.82 mill/uL (4.20-5.40); White Blood Cell (WBC) Count 14.2 thou/uL (4.8-10.8)
[2018-04-26] MEDS: Cholestyramine/Aspartame 4 gm Packet PO SCH (11:32)
[2018-04-26 11:42] LABS: Anion Gap 11 mmol/L (10-20); BUN (Urea Nitrogen) 17 mg/dL (9.8-20.1); Calc. Creatinine Clearance 50 mL/min (70-130); Calcium 9.1 mg/dL (7.8-10.44); Carbon Dioxide 22 mmol/L (23-31); Chloride 107 mmol/L (98-107); Estimated GFR-MDRD 47; Glucose 100 mg/dL (83-110); Potassium 4.3 mmol/L (3.5-5.1); Sodium 136 mmol/L (136-145)
[2018-04-26 11:43] LABS: Band 10 % (5-11); Eosinophils 2 % (0-10); Lymphocytes 9 % (21-51); MDiff Complete? YES; Monocytes 2 % (0-10); Neutrophil 72 % (42-75); RBC Morphology Normal; Reactive Lymphocytes 5 % (0-10)
--- NOTE | 2018-04-26 13:54 | ULT ---
BILATEARL LOWER EXTREMITY VENOUS DUPLEX EXAM: History: Bilateral leg pain and swelling. FINDINGS: Real-time color doppler evaluation of the right and left lower extremities were performed from groin to calf. This includes evaluation of the common femoral, superficial and profunda femoral, saphenous, popliteal, and posterior tibial veins. This shows patent deep venous systems bilaterally. There is n ormal compressibility and augmentation. There is no evidence of DVT. IMPRESSION: No evidence of DVT of either lower extremity. POS: BRYAN
[2018-04-26 15:44] VITALS: BP 140/56; TEMP 98.3
--- NOTE | 2018-04-27 09:53 | DIS-2 ---
DATE OF ADMISSION: 04/23/2018 DATE OF DISCHARGE: 04/26/2018 RESIDENT: Paddy Giang D.O. ADMITTING ATTENDING: Betty Portillo M.D. DISCHARGE ATTENDING: Betty Portillo M.D. CONSULTATIONS: Dr. Beaulieu, Cardiology; Dr. Rey, Neurology. PROCEDURES: Chest x-ray showing no acute cardiopulmonary abnormality. CT abdomen and pelvis with co ntrast shows findings concerning with mild acute diverticulitis of the proximal sigmoid colon, inflam matory change of the urinary bladder compatible with cystitis. Ankle x-ray x3 view with history of f all shows no acute fracture or subluxation. Brain CT without contrast shows no acute intracranial ab normalities. Knee x-ray four-view shows no fracture or subluxation, there is stable diffuse osteopen ia. Bilateral carotid duplex ultrasound, which was no evidence of hemodynamically significant stenos is. MRI brain without contrast shows small focal infarction involving the posterior right corpus lisette losum, left lentiform nucleus, left frontal cortical white matter. Insertion of permanent cardiac mo nitor. RAQUEL shows PFO noted by contrast bubble, no thrombus is noted left atrium or left atrial appen dage, normal mitral and aortic valves, TTE shows EF of 55%-60%, mild to moderate tricuspid regurgitat ion. Bilateral lower extremity venous duplex exam showing no evidence of DVT either extremity. PRIMARY DIAGNOSES: Cerebrovascular accident with pattern suspicious of cardiovascular origin and div erticulitis. SECONDARY DIAGNOSES: Crohn's disease, polycythemia vera, and hypertension. DISCHARGE MEDICATIONS: Include, 1. Tylenol 650 q.4 hours. p.r.n. pain. 2. Aspirin 325 daily. 3. Cholestyramine 5 grams p.o. daily. 4. Hydroxyurea 500 mg p.o. daily. 5. Augmentin 875/125 1 p.o. b.i.d. for 4 days. DISCONTINUED MEDICATIONS: ATORVASTATIN. COMMENT: The patient was adamant about not taking any statin. "Statins are poison per my research." I discussed risks and benefits with the patient and she still declines statin therapy at this time. HISTORY OF PRESENT ILLNESS AND HOSPITAL COURSE: This is a 77-year-old female who presented to the ER with one week history of right leg weakness, general fatigue. This was a new finding. The patient was worked up for stroke. In addition, during workup, the patient was found to have diverticulitis o n CT of abdomen. CT showed inflammation of the bladder; however, UA was negative for infection. The patient was started on Zosyn monotherapy for diverticulitis. She is allergic to METRONIDAZOLE. The patient tolerated hospital course well; however, on the , patient had fever of 102.6. This was an isolated fever, was controlled with Tylenol and did not reoccur again. We obtained an MRI which s howed the findings above suggestive of cardiac etiology. We obtained a TTE and a RAQUEL showing no sign s of clot within the heart or within the atrium or valve malformations or calcifications. The patien t did have a PFO which is concerning and suggestive of the stroke etiology. The patient also receive d LINQ monitor as mentioned above to determine if the patient had any source of atrial fibrillation i n the coming days. The patient was also treated for hypokalemia during her stay, patient's potassium got as low as 2.9. She was treated aggressively with p.o. t.i.d. as well as IV potassium. At time of discharge, potassium is 4.3. DISPOSITION: Stable. DISCHARGE INSTRUCTIONS: 1. Location: Rehab. 2. Activity: As tolerated. 3. Diet: Regular. 4. Followup: Follow up with PCP, Cardiology, Neurology in 1-2 weeks.
== END 2018-04-26 18:30 | DRG 65 ==
LOC: ERS 03:21 → T4-A 05:35 → 2SE 09:27 → OBSVTOIN 04-24 09:02
PROVIDERS: ADMIT Family Medicine; ATTEND Family Medicine
PROC: 4A123FZ Monitoring of Cardiac Rhythm, Percutaneous Approach (ICD-10-PCS; principal; 2018-04-25)
PROC: B24BZZ4 Ultrasonography of Heart with Aorta, Transesophageal (ICD-10-PCS; 2018-04-25)
DX: I63.9 Cerebral infarction, unspecified (principal); K50.90 Crohn's disease, unspecified, without complications; Q21.1 Atrial septal defect; I45.2 Bifascicular block; N30.90 Cystitis, unspecified without hematuria; R01.1 Cardiac murmur, unspecified; E86.0 Dehydration; D45 Polycythemia vera; I10 Essential (primary) hypertension; Z79.82 Long term (current) use of aspirin; Z88.8 Allergy status to other drugs, medicaments and biological substances; E87.6 Hypokalemia; Z86.73 Personal history of transient ischemic attack (TIA), and cerebral infarction without residual deficits
CPT/HCPCS: 33282; 36415; 51701; 70450; 70551; 71045; 74177; 80048; 80053; 80061; 81003; 81015; 82247; 82550; 82553; 83605; 83735; 83880; 84100; 84484; 85025; 85610; 85730; 87040; 87081; 87430; 87804; 90471; 90670; 93005; 93306; 93312; 93880; 93970; 96361; 96374; 96375; A4353; C1764; G0009; G8978-GP-CL; G8979-GP-CI; G8987-GO-CL; G8988-GO-CI; G9168-GN-CK; G9169-GN-CJ; J0744; J1650; J1956; J2001; J2270; J2405; J2543; J2704; J3475; J3480; J7050; Q0162

== ENCOUNTER 2018-06-07 22:14 | Inpatient (IN) | payer MEDICARE, MEDICAID ==
[2018-06-07] MEDS ORDERED: Ondansetron PF 4 MG/2 ML Vial ONE (22:50)
[2018-06-07] MEDS ORDERED: Morphine 2 MG/ML SYRINGE ONE ×2 (22:50→23:34)
[2018-06-07 23:24] LABS: #Basophils 0.1 thou/uL (0.0-0.2); #Eosinphils 0.1 thou/uL (0.0-0.7); #Lymphocytes 1.8 thou/uL (1.20-3.40); #Monocytes 0.5 thou/uL (0.11-0.59); #Neutrophils 15.5 thou/uL (1.40-6.50); %Basophils 0.4 % (0.0-1.0); %Eosinophils 0.7 % (0.0-10.0); %Lymphocytes 10.2 % (21.0-51.0); %Monocytes 2.8 % (0.0-10.0); %Neutrophils 85.8 % (42.0-75.0); Hemoglobin 13.4 g/dL (12.0-16.0); Mean Corpuscular HGB CONC 30.1 g/dL (32.0-36.0); Mean Corpuscular Hemoglobin 27.8 pg (27.0-31.0); Mean Corpuscular Volume 92.5 fL (78.0-98.0); Platelet Count 598 thou/uL (130-400); Red Blood Cell (RBC) Count 4.82 mill/uL (4.20-5.40)
[2018-06-07 23:30] LABS: INR-International Normal Ratio 1.2; Prothrombin Time 15.6 SEC (12.0-14.7)
[2018-06-07 23:31] LABS: PTT 42.9 SEC (22.9-36.1)
[2018-06-07 23:33] LABS: Bilirubin Negative (Negative); Blood, Urine Negative (Negative); Clarity CLEAR (Clear); Glucose, Urine (Dipstick) Negative (Negative); Leukocyte Negative (Negative); Nitrite Negative (Negative); Protein, Urine (Dipstick) 100 mg/dL (Neg-Trace); Specific Gravity, Urine 1.014 (1.002-1.036); Urobilinogen 0.2 mg/dL (0.2-1.0); pH, Urine 5.5 (5.0-9.0)
[2018-06-07 23:35] LABS: Bacteria/HPF None Seen HPF (None Seen); Hyaline Casts/LPF 0-3 HYALINE CAST LPF (0-3 Hyaline); RBC/HPF 0-3 HPF (0-3); Squamous Epithelial None Seen HPF (0-3); WBC/HPF 0-3 HPF (0-3)
--- NOTE | 2018-06-07 23:38 | RAD ---
AP VIEW PELVIS: 06/07/18 INDICATION: Fall with right hip pain. COMPARISON: Prior exam dated 04/16/18. FINDINGS: There is a comminuted right intertrochanteric hip fracture. No additional fracture is grossly evident . IMPRESSION: Right intertrochanteric hip fracture. POS: [facility]
--- NOTE | 2018-06-07 23:41 | RAD ---
TWO VIEWS OF THE RIGHT HIP 06/07/18 INDICATION: Fall with right hip pain. IMPRESSION: There is a comminuted mildly displaced right intertrochanteric hip fracture. There is suspicion for a nondisplaced right anterior column fracture, best seen on the AP projection. There is lucency overlying the right acetabula which may be related to bowel gas possibly from an in guinal hernia. Recommend consideration for a CT evaluation of the pelvis to further characterize the right anterior column fracture as well as possible right inguinal hernia. POS: [facility]
[2018-06-07 23:42] LABS: ALT (SGPT) 8 U/L (8-55); AST (SGOT) 19 U/L (5-34); Albumin 3.9 g/dL (3.4-4.8); Alkaline Phosphatase 92 U/L (40-150); Anion Gap 13 mmol/L (10-20); BUN (Urea Nitrogen) 14 mg/dL (9.8-20.1); Bilirubin, Total 0.5 mg/dL (0.2-1.2); Calc. Creatinine Clearance 0 mL/min (70-130); Calcium 9.7 mg/dL (7.8-10.44); Carbon Dioxide 22 mmol/L (23-31); Chloride 107 mmol/L (98-107); Estimated GFR-MDRD 66; Globulin 3.3 g/dL (2.4-3.5); Glucose 117 mg/dL (83-110); Protein, Total 7.2 g/dL (6.0-8.3); Sodium 138 mmol/L (136-145)
--- NOTE | 2018-06-07 23:43 | RAD ---
CHEST ONE VIEW 06/07/18 INDICATION: Fall with right hip pain. COMPARISON: Prior exam dated 04/23/18. FINDINGS: Loop recorder overlies the mediastinum. The lungs are clear. No contusion or pleural effusion is evid ent. Postsurgical changes involving the right chest wall similar appearing. Osseous structures reveal no definite acute abnormality. IMPRESSION: No definite acute cardiopulmonary abnormality POS: [facility]
[2018-06-07 23:47] LABS: CKMB 1.1 ng/mL (0-6.6); Troponin I Less than 0.010 ng/mL (< 0.028)
--- NOTE | 2018-06-08 | CT ---
CT OR THE BRAIN WITHOUT CONTRAST 06/07/18 INDICATION: Fall while on blood thinners. COMPARISON: Prior exam dated 04/23/18. FINDINGS: No acute infarct, hemorrhage or hydrocephalus is present. Septum pellucidum and third ventricle are m idline. Chronic small vessel white matter ischemic change is similar appearing. Skull and extracrania l soft tissues appear within normal limits. IMPRESSION: No acute intracranial abnormality. POS: [facility]
[2018-06-08] MEDS ORDERED: Ketorolac Tromethamine 30 MG/ML VIAL ONE (00:26)
[2018-06-08] MEDS ORDERED: Ondansetron PF 4 MG/2 ML Vial IVP PRN (00:27)
[2018-06-08] MEDS ORDERED: Dextrose 50% Abboject 50 ML SYRINGE SLOW IVP PRN (00:27)
[2018-06-08] MEDS ORDERED: Dextrose 5% in Water 1,000 ML IV PRN (00:27)
[2018-06-08] MEDS ORDERED: traMADol HCl 50 MG TAB ONE (01:18)
[2018-06-08] MEDS ORDERED: Acetaminophen 325 MG TAB ONE (01:19)
[2018-06-08 03:22] VITALS: BMI 26.7
[2018-06-08] MEDS: Morphine 2 MG/ML SYRINGE SLOW IVP PRN ×2 (05:34→10:35)
--- NOTE | 2018-06-08 06:30 | HP-2 ---
DATE OF SERVICE: 06/07/2018. The patient was referred by Dr. Tish Esquivel in the emergency department. TRAUMA ATTENDING: Donnell Mohamud M.D. CONSULTING ORTHOPEDIST: Humberto Guerrier M.D. PCP: Dr. Jami Banks MD Saddle Mechanic: Dr. Beaulieu Neurologist: Dr. Cheney REASON FOR ADMISSION: Right intertrochanteric hip fracture. HISTORY OF PRESENT ILLNESS: Ms. Dowling is a 77-year-old female with a past medical history of recent CVA with right-sided weakness as sequelae, hypertension, diverticulitis, Crohn's disease, Polycythemia vera, MS, patent PFO , breast cancer with resection in 1988, who was brought in by EMS today after a mechanical fall. The patient states that she had been out running errands all day and went home, tripped on a wire landing on her right side. She had no loss of consciousness, has no other pain other than her right hip. Right leg is noted to be shortened and rotated. X-ray demonstrates a right comminuted intertrochanteric fracture. Chest x-ray appears under exposed, but no cardiopulmonary abnormality. CT head is negative. Lab work is significant for leukocytosis to 18,000, which could be stress induced otherwise is unremarkable. The patient did have Eliquis this evening. Therefore, Orthopedic Surgery recommends admission to the hospital and operative repair likely on hospital day 2 and holding the Eliquis. The patient has been given a total of 150 mcg of fentanyl, 8 mg of morphine with minimal relief in her pain. She is noted to be hypertensive, still complaining of right hip pain. I have ordered Toradol, tramadol, Tylenol to be given now and will put in orders for pain control as needed. The patient denies any chest pain, shortness of breath, nausea or vomiting. She has not had a fever. There is no syncope or anything preceding the patient's fall. The patient denies any other complaints of pain. REVIEW OF SYSTEMS: Pertinent positive and negative per HPI, otherwise 12-point review of systems is negative. PAST MEDICAL HISTORY: 1. CVA with right-sided sequelae. 2. Atrial fibrillation. 3. Diverticulitis. 4. Crohn's disease. 5. PCV. 6. Hypertension, not on current medications. 7. Remote history of breast cancer. 8. MS, non-remitting. PAST SURGICAL HISTORY: 1. Cholecystectomy. 2. Hemicolectomy with reanastomosis. 3. Modified right mastectomy in 1988. MEDICATIONS: Hydroxyurea 500 mg daily, cholestyramine 5 grams daily, Eliquis 5 mg b.i.d. ALLERGIES: FLAGYL. FAMILY HISTORY: Mother with diverticulitis and maternal grandmother with heart disease. Maternal grandfather with leukemia. She was estranged from her father. SOCIAL HISTORY: The patient is a former smoker, stopping smoking in 1974. She denies any alcohol or illicit drug use. She lives at [place] alone. She is single, retired from working at a [employer] and [employer]. PHYSICAL EXAMINATION: VITAL SIGNS: Blood pressure 182/81, heart rate is 84, respiratory rate is 20, temperature is 98.6 and she is 98% on room air. GENERAL: A 77-year-old female supine in bed, in acute pain. HEENT: Normocephalic, atraumatic. Halitosis noted. ENT: Dry mucous membranes. NECK: No JVD and trachea is midline. RESPIRATORY: Equal rise and fall. Bilateral breath sounds clear to auscultation upper and lower bilaterally. No rubs or wheezes appreciated. CARDIOVASCULAR: Regular rate and rhythm. She does have a systolic murmur noted. She states it is chronic in nature, no edema is appreciated and strong pulses in all extremities. ABDOMEN: Soft and nontender. No masses, rigidity or guarding. Pelvis pain to the right hip. MUSCULOSKELETAL: She has pain about the right hip, shortened and externally rotated right lower extremity. She has got positive sensation in all dermatomes and right lower extremity. She has got strong PT and DP pulses bilaterally. Strong radial pulses. SKIN: [place], warm and dry. NEUROLOGIC: Alert and oriented to person, place, time, and event. No gross deficits are appreciated. PSYCHIATRIC: Normal mood and affect. DIAGNOSTIC DATA: Today, white blood cell 18,000, platelets of 598, hemoglobin and hematocrit 13.4 and 44.4 respectively. Chemistry: Sodium is 138, potassium is 4.0, chloride is 107, CO2 is 22, BUN is 14, creatinine 0.83, glucose is 117, AST and ALT 19 and 8 respectively. Alkaline phosphatase is 92. Troponin is less than 0.01, CK-MB is 1.1. Urine is clear and yellow with 0-3 red blood cell, no leukocyte esterase, nitrite negative, no blood, no ketones, no bacteria. PT is 15.6, INR is 1.2 and a PTT is 42.9. RADIOGRAPHIC FINDINGS: CT head is negative for acute intracerebral hemorrhage. A chest x-ray appears under exposed, but is negative for acute cardiopulmonary abnormalities. Hip x-ray demonstrates a right intertrochanteric fracture. Pelvis x-ray demonstrates the same. Review of past history had an echocardiogram transesophageal on 04/25/2018 with normal EF , mild mitral and tricuspid regurg is appreciated. She did have a tower erector helper placed on 04/25/2018 as well and a PFO was noted on her echo with bubbles. There is a report that the patient has a history of atrial fibrillation. She is currently sinus during our exam. EKG shows a sinus rhythm with rate of 94, QTc is 487. She does have a motion artifact noted. No ectopy. Leftward axis. The bundle branch block is noted. ASSESSMENT: 1. Acute right intertrochanteric hip fracture, comminuted, mildly displaced. 2. Acute traumatic pain. 3. Anticoagulated, on Eliquis for atrial fibrillation. 4. History of cerebrovascular accident, hypertension, diverticulitis, and MS. PLAN: 1. We will admit the patient to the surgery terry. 2. Additional pain control as noted above. 3. Monitor blood pressure, may need additional agents. 4. Able to have a diet tonight. We will make her n.p.o. at midnight on the for operative repair later that day. 5. Dr. Guerrier has been consulted. We appreciate recommendations. 6. Repeat blood work on the morning of the . 7. Trauma Bowel regimen. Diet: will be heart healthy. Activity: Strict bed rest. FULL CODE. Access: peripheral IVs and a Francis catheter. Prophylaxis: We will be SCD and oral Pepcid. DISPOSITION: Surgery terry. I have coordinating care with the emergency department staff. I have updated Ms. Dowling and answered all questions at the bedside. YADID
[2018-06-08] MEDS ORDERED: traMADol HCl 50 MG TAB PO SCH (08:45)
[2018-06-08] MEDS ORDERED: Acetaminophen 325 MG TAB PO SCH (08:45)
[2018-06-08] MEDS: Acetaminophen 325 MG TAB PO SCH ×4 (09:03→20:43)
[2018-06-08] MEDS: Ibuprofen 600 MG TAB PO SCH ×3 (09:03→20:43)
[2018-06-08] MEDS: traMADol HCl 50 MG TAB PO SCH ×4 (09:03→20:43)
[2018-06-08] MEDS: Famotidine 20 MG TAB PO SCH (09:19)
[2018-06-08] MEDS: Hydroxyurea 500 MG CAP PO SCH (09:20)
[2018-06-08] MEDS ORDERED: CEFAZOLIN 2 GM/50 ML BAG IVPB SCH (09:45)
[2018-06-08] MEDS: Cholestyramine/Aspartame 4 gm Packet PO SCH (10:35)
--- NOTE | 2018-06-08 12:30 | PRG-2 ---
DATE OF SERVICE: 06/08/2018 SUBJECTIVE: Ms. Dowling is post-injury day #1 awaiting ORIF of the right hip, secondary to intertro chanteric hip fracture. Dr. Guerrier has been consulted and planned for operative repair at [facility] tomorrow morning. The patient states that when she was moved from the emergency department bed an d to the surgery terry bed that her pain greatly improved. She has been given morphine. She is on sc heduled Tylenol, tramadol, and ibuprofen. She is reporting some muscle spasms and requesting somethi ng for the same. Vital signs remained stable. Blood pressure has greatly improved, and she is hemod ynamically stable. OBJECTIVE DATA: VITAL SIGNS: Temperature is 99.3, blood pressure 136/69, heart rate is 88, breathing at 16 times per minute. She is 93% on room air. GENERAL: This is a 77-year-old female, lying supine in bed, in no acute distress. HEENT: Normocephalic, atraumatic. NECK: Trachea is midline. No JVD is appreciated. RESPIRATORY: Equal rise and fall. Bilateral breath sounds clear to auscultation, upper and lower bi laterally. CARDIOVASCULAR: Regular rate and rhythm. No murmurs are appreciated. ABDOMEN: Soft and nontender. Pelvis and right hip pain. MUSCULOSKELETAL: She has shortening in the external rotation of the right lower extremity. She has strong peripheral pulses and she has sensation in all extremities. No edema is appreciated. PSYCHIATRIC: Normal mood and affect. NEUROLOGIC: Alert and oriented to person, place, time, and event. No gross deficits. SKIN: [place], warm and dry. LABORATORY DATA: There are no further laboratory data from today. ASSESSMENT AND PLAN: 1. Right intertrochanteric hip fracture. 2. Acute traumatic pain. 3. Hypertension is resolving. 4. History of multiple sclerosis, diverticulitis, Crohn's disease. PLAN: 1. Continue all supportive care. 2. Continue pain management, trying to avoid parenteral as possible. 3. Add Flexeril 10 mg. 4. N.p.o. tonight at midnight. 5. Continue to hold Eliquis. 6. Orthopedics has been consulted, appreciate recommendations. I have answered all questions with Ms. Dowling at the bedside. This plan was discussed with Dr. Muriel lowe and can be updated as needed.
[2018-06-08] MEDS: Cyclobenzaprine 10 MG TAB PO PRN ×2 (12:44→23:31)
[2018-06-08] MEDS: HYDROcodone/Acetaminophen 10/325 mg Tablet PO PRN (23:35)
[2018-06-09] MEDS: traMADol HCl 50 MG TAB PO SCH ×4 (03:22→20:02)
[2018-06-09] MEDS: Acetaminophen 325 MG TAB PO SCH ×4 (03:22→20:02)
[2018-06-09 05:07] LABS: #Eosinphils 0.2 thou/uL (0.0-0.7); #Lymphocytes 2.7 thou/uL (1.20-3.40); #Monocytes 0.6 thou/uL (0.11-0.59); #Neutrophils 7.2 thou/uL (1.40-6.50); %Basophils 0.4 % (0.0-1.0); %Eosinophils 1.8 % (0.0-10.0); %Lymphocytes 25.2 % (21.0-51.0); %Monocytes 5.1 % (0.0-10.0); %Neutrophils 67.5 % (42.0-75.0); Hemoglobin 11.8 g/dL (12.0-16.0); Mean Corpuscular HGB CONC 30.9 g/dL (32.0-36.0); Mean Corpuscular Hemoglobin 28.8 pg (27.0-31.0); Mean Corpuscular Volume 93.1 fL (78.0-98.0); Mean Platelet Volume 8.2 fL (7.4-10.4); Platelet Count 535 thou/uL (130-400); RBC Distribution Width 18.7 % (11.5-14.5); Red Blood Cell (RBC) Count 4.09 mill/uL (4.20-5.40); White Blood Cell (WBC) Count 10.7 thou/uL (4.8-10.8)
[2018-06-09 05:42] LABS: Anion Gap 8 mmol/L (10-20); BUN (Urea Nitrogen) 26 mg/dL (9.8-20.1); Calc. Creatinine Clearance 43 mL/min (70-130); Calcium 8.7 mg/dL (7.8-10.44); Carbon Dioxide 27 mmol/L (23-31); Chloride 105 mmol/L (98-107); Estimated GFR-MDRD 44; Glucose 101 mg/dL (83-110); Potassium 3.7 mmol/L (3.5-5.1); Sodium 136 mmol/L (136-145)
[2018-06-09] MEDS: Morphine 2 MG/ML SYRINGE SLOW IVP PRN (06:05)
[2018-06-09] MEDS: Ibuprofen 600 MG TAB PO SCH ×3 (06:36→21:32)
[2018-06-09] MEDS ORDERED: Fentanyl 100 MCG/2 ML VIAL ONE ×4 (07:25→10:06)
[2018-06-09] MEDS ORDERED: CEFAZOLIN 2 GM/50 ML BAG ONE (07:54)
[2018-06-09] MEDS: Famotidine 20 MG TAB PO SCH (08:15)
[2018-06-09] MEDS: Cholestyramine/Aspartame 4 gm Packet PO SCH (08:15)
[2018-06-09] MEDS: Hydroxyurea 500 MG CAP PO SCH (08:15)
[2018-06-09] MEDS ORDERED: Ondansetron HCl/PF 4 MG/2 ML Vial IVP PRN (09:15)
[2018-06-09] MEDS ORDERED: Glycopyrrolate 0.2 MG/ML 5 ML SYRINGE ONE (10:14)
[2018-06-09] MEDS ORDERED: Dexamethasone 20 MG/5 ML VIAL ONE (10:14)
[2018-06-09] MEDS ORDERED: PROPOFOL 200 MG/20 ML VIAL ONE (10:14)
[2018-06-09] MEDS ORDERED: PHENYLEPHRINE-NS 100 MCG/ML 10 ML SYRINGE ONE (10:14)
[2018-06-09] MEDS ORDERED: Ondansetron PF 4 MG/2 ML Vial ONE (10:14)
[2018-06-09] MEDS ORDERED: Lidocaine 1% PF 5 ML VIAL ONE (10:14)
[2018-06-09] MEDS: HYDROcodone/Acetaminophen 10/325 mg Tablet PO PRN (11:37)
[2018-06-09] MEDS: CEFAZOLIN 2 GM/50 ML BAG IVPB SCH ×2 (15:35→23:59)
--- NOTE | 2018-06-09 16:34 | PRG ---
DATE OF SERVICE: 06/09/2018 SUBJECTIVE: Ms. Dowling is post-injury #2 postop day #0 status post fixation of her right intertroc hanteric hip fracture. The patient was seen and evaluated postoperatively. Upon our evaluation, the patient vocalized no complaint. She states her pain has been well controlled. OBJECTIVE: VITAL SIGNS: Temperature 98.4, pulse 91, respiration rate 18, O2 sat 94% on 2 liters nasal cannula, blood pressure 129/65. GENERAL: Well-developed elderly appearing female in no acute distress, resting in bed. PULMONARY: Normal work of breathing. Symmetric rise. CARDIOVASCULAR: Regular rate and rhythm. GASTROINTESTINAL: Abdomen is soft, nontender, nondistended. MUSCULOSKELETAL: Moves all extremities x4. NEUROLOGIC: No focal deficit is noted. LABORATORY DATA: WBC 10.7, hemoglobin 11.8, hematocrit 38.1, platelet count 535. Sodium 136, potass ium 3.7, chloride 105, carbon dioxide 27, BUN 26, creatinine 1.19, glucose 101. ASSESSMENT: 1. Status post fall. 2. Right intertrochanteric hip fracture. 3. Acute traumatic pain. 4. History of multiple sclerosis, diverticulitis and Crohn's disease. 5. History of atrial fibrillation, on chronic anticoagulation. PLAN: Postoperative PT and OT have been ordered. Inpatient rehab consult has been placed. Postoper ative pain management with p.o. analgesics. Per discussion with Orthopedic Surgery, patient should r esume her Eliquis tomorrow morning. A.m. labs. Discontinue IV analgesics at this time. Plan of car e was discussed with the patient at bedside and all questions were answered at the time of this dicta tion. Patient was seen and evaluated with Dr. Manjarrez.
[2018-06-09] MEDS: traMADol HCl 50 MG TAB PO PRN (18:31)
[2018-06-09] MEDS: Cyclobenzaprine 10 MG TAB PO PRN (20:00)
[2018-06-09] MEDS: Senokot S 8.6-50 MG TAB PO SCH (20:02)
[2018-06-09] MEDS ORDERED: Enoxaparin Sodium 40 MG/0.4 ML SYRINGE SC SCH (21:00)
[2018-06-10] MEDS: Acetaminophen 325 MG TAB PO SCH ×4 (03:48→20:47)
[2018-06-10] MEDS: traMADol HCl 50 MG TAB PO SCH ×4 (03:48→20:46)
[2018-06-10 05:10] LABS: #Lymphocytes 1.3 thou/uL (1.20-3.40); #Monocytes 0.5 thou/uL (0.11-0.59); #Neutrophils 7.6 thou/uL (1.40-6.50); %Basophils 0.3 % (0.0-1.0); %Eosinophils 0.1 % (0.0-10.0); %Lymphocytes 13.3 % (21.0-51.0); %Monocytes 5.7 % (0.0-10.0); %Neutrophils 80.6 % (42.0-75.0); Hemoglobin 10.6 g/dL (12.0-16.0); Mean Corpuscular HGB CONC 31.5 g/dL (32.0-36.0); Mean Corpuscular Hemoglobin 29.2 pg (27.0-31.0); Mean Corpuscular Volume 92.7 fL (78.0-98.0); Mean Platelet Volume 7.9 fL (7.4-10.4); Platelet Count 504 thou/uL (130-400); RBC Distribution Width 18.4 % (11.5-14.5); Red Blood Cell (RBC) Count 3.62 mill/uL (4.20-5.40); White Blood Cell (WBC) Count 9.5 thou/uL (4.8-10.8)
[2018-06-10 05:24] LABS: Anion Gap 10 mmol/L (10-20); BUN (Urea Nitrogen) 28 mg/dL (9.8-20.1); Calc. Creatinine Clearance 64 mL/min (70-130); Calcium 8.9 mg/dL (7.8-10.44); Carbon Dioxide 26 mmol/L (23-31); Chloride 105 mmol/L (98-107); Estimated GFR-MDRD 68; Glucose 120 mg/dL (83-110); Magnesium 1.4 mg/dL (1.6-2.6); Phosphorus 3.9 mg/dL (2.3-4.7); Potassium 4.3 mmol/L (3.5-5.1); Sodium 137 mmol/L (136-145)
[2018-06-10] MEDS: Ibuprofen 600 MG TAB PO SCH ×3 (06:07→20:50)
[2018-06-10] MEDS: Cholestyramine/Aspartame 4 gm Packet PO SCH (08:05)
[2018-06-10] MEDS: Cyclobenzaprine 10 MG TAB PO PRN (08:36)
[2018-06-10] MEDS ORDERED: Magnesium Sulfate 3 GM in Sodium Chloride 0.9% 100 ML IVPB SCH (09:00)
[2018-06-10] MEDS: traMADol HCl 50 MG TAB PO PRN (10:13)
[2018-06-10] MEDS: Famotidine 20 MG TAB PO SCH (10:13)
[2018-06-10] MEDS: Senokot S 8.6-50 MG TAB PO SCH ×2 (10:15→20:50)
[2018-06-10] MEDS: Apixaban 5 MG TAB PO SCH ×2 (10:15→20:47)
[2018-06-10] MEDS: Hydroxyurea 500 MG CAP PO SCH (10:16)
[2018-06-10] MEDS ORDERED: Cyclobenzaprine 10 MG TAB PO PRN (10:52)
[2018-06-10] MEDS ORDERED: HYDROcodone/Acetaminophen 7.5/325 mg Tablet PO PRN (10:57)
--- NOTE | 2018-06-10 13:41 | RAD ---
RIGHT FEMUR 2 VIEWS: Date: 06/09/18 HISTORY: Open reduction and internal fixation. COMPARISON: Pelvis radiograph 2 days prior. FINDINGS: Multiple spot fluoroscopic images were sent for interpretation. Satisfactory intraoperative images fr om intramedullary nail placement. IMPRESSION: Satisfactory postoperative appearance. Total fluoro time: 69.2 seconds. POS: [facility]
[2018-06-10] MEDS: Cyclobenzaprine 10 MG TAB PO SCH ×2 (14:44→20:47)
--- NOTE | 2018-06-10 16:07 | OP ---
DATE OF SURGERY: 06/09/2018 PREOPERATIVE DIAGNOSIS: Right intertrochanteric femur fracture. POSTOPERATIVE DIAGNOSIS: Right intertrochanteric femur fracture. SURGICAL PROCEDURE: TFN, right hip. ANESTHESIA: General. SURGEON: Humberto Guerrier M.D. COMMERCIAL CLEANER: Pedro De Jesus PA-C. BLOOD LOSS: 150 mL IMPLANTS: Synthes TFNA 11 x 360 mm with 95 mm hip screw and 5 mm distal cross lock screw. DRAINS: None. SPECIMEN: None. COMPLICATIONS: None. OUTCOME: Near anatomic alignment. INDICATIONS: The patient is a 77-year-old lady, status post fall sustaining a comminuted right inter trochanteric femur fracture. After discussion with the patient including risks and benefits, we deci ded to proceed with TFN stabilization given the lesser trochanter is fractured with fracture extendin g down into the subtroch region. Informed consent has been obtained. I believe all questions answer ed. DESCRIPTION OF PROCEDURE: The patient was brought to the operating room and a timeout performed foll owed by induction of general anesthesia. Next, the patient was positioned supine on the fracture tab le with the injured extremity held in longitudinal traction and slight internal rotation while the un affected limb was held in extension at the hip to allow for AP, lateral and C-arm imaging. Next, a s terile prep and drape was performed of the right lateral thigh. Next, a small incision was made prox imal to the greater trochanter. After skin was sharply incised, dissection was carried down bluntly such that the tip of the greater trochanter could be easily palpated. Next, a threaded guidewire was passed from the tip of the greater trochanter into the shaft of the femur. This was followed by dirk duenas of the starting reamer over this guidewire opening the proximal femoral canal. Next, a ball-tip ped guidewire was passed down the intramedullary canal of the femur. Once down into the distal femor al metaphyseal bone, a 12 mm reamer was passed over this guidewire. Next, an 11 x 360 mm nail was in serted over the ball-tipped guidewire. Once delivered to an appropriate depth, the ball-tipped guide wire was removed and then using the jig, a second threaded guidewire was passed through a second skin incision distal to the first across the lateral cortex of the femur up the femoral neck into the fem oral head. Once appropriately positioned, measurement of this pin determined that 95 mm hip screw wo uld be of appropriate length and as such, the step reamer was passed over the guidewire to this depth . Next, the hip screw was inserted over the guidewire in standard fashion. This was then locked in place and then the locking mechanism backed off by half a turn to allow for sliding of the hip screw. Next, a third incision was made distal near the level of the knee under fluoroscopy guidance and th en a single distal cross lock screw was inserted in standard fashion. At the completion of this, fin al AP, lateral and C-arm images were obtained that showed acceptable alignment of fracture and positi oning of hardware. The three incisions were then irrigated with normal saline and then closed in lay ers with 0 Vicryl and 2-0 Vicryl followed by isaiah for the most proximal incision. The other two s mall stab wounds were closed with isaiah. Xeroform gauze and tape dressing was applied to the thigh and then the patient was transferred to recovery room in stable condition. There were no complicati ons and she tolerated the procedure well.
--- NOTE | 2018-06-10 19:48 | PRG ---
DATE OF SERVICE: 06/10/2018 SUBJECTIVE: Ms. Kika Dowling is a 77-year-old female who is postop day #1 status post right hip f racture repair. There were no acute overnight events. Patient states her pain this morning is uncon trolled, particularly when she is working with therapy or attempting to mobilize. OBJECTIVE: VITAL SIGNS: Temperature 98.4, pulse 88, respirations 16, O2 sat 96% on 2 liters nasal cannula, bloo d pressure 153/56. GENERAL: Elderly-appearing female sitting in chair, out of bed in obvious discomfort. PULMONARY: Normal work of breathing. Symmetric rise. CARDIOVASCULAR: Regular rate and rhythm, no obvious murmurs, rubs or gallops. GASTROINTESTINAL: Abdomen is soft, nontender, nondistended. MUSCULOSKELETAL: Moves all extremities x4. NEUROLOGIC: No focal deficit is noted. LABORATORY DATA: WBC 9.5, hemoglobin 10.6, hematocrit 33.6, platelet count 504. Sodium 137, potassi um 4.3, chloride 105, carbon dioxide 26, BUN 28, creatinine 0.81, glucose 120, phosphorus 3.9, magnes ium 1.4. ASSESSMENT: 1. Status post mechanical fall. 2. Right intertrochanteric hip fracture, postoperative day #1, status post repair. 3. Acute traumatic pain. 4. History of multiple sclerosis, diverticulitis and Crohn's disease. 5. History of atrial fibrillation, on chronic anticoagulation. PLAN: Patient may resume Eliquis this morning. We will adjust pain regimen with the addition of Nor co and scheduling full dose of Ultram. Replace abnormal electrolytes. Continue to encourage incenti ve spirometry and pulmonary toileting. The patient should continue to work with PT and OT. Case man agement for eventual disposition. Plan of care was discussed with the patient at bedside. All quest ions were answered at the time of this dictation. The patient was seen and evaluated with Dr. Manjarrez.
[2018-06-11] MEDS: traMADol HCl 50 MG TAB PO SCH ×3 (03:56→14:51)
[2018-06-11] MEDS: Acetaminophen 325 MG TAB PO SCH ×3 (03:56→14:51)
[2018-06-11 05:25] LABS: #Basophils 0.1 thou/uL (0.0-0.2); #Eosinphils 0.2 thou/uL (0.0-0.7); #Lymphocytes 2.3 thou/uL (1.20-3.40); #Monocytes 0.6 thou/uL (0.11-0.59); #Neutrophils 6.1 thou/uL (1.40-6.50); %Basophils 0.6 % (0.0-1.0); %Eosinophils 2.5 % (0.0-10.0); %Neutrophils 65.9 % (42.0-75.0); Hemoglobin 10.3 g/dL (12.0-16.0); Mean Corpuscular HGB CONC 31.3 g/dL (32.0-36.0); Mean Corpuscular Hemoglobin 29.1 pg (27.0-31.0); Mean Corpuscular Volume 93.2 fL (78.0-98.0); Mean Platelet Volume 7.8 fL (7.4-10.4); Platelet Count 609 thou/uL (130-400); Red Blood Cell (RBC) Count 3.54 mill/uL (4.20-5.40); White Blood Cell (WBC) Count 9.2 thou/uL (4.8-10.8)
[2018-06-11 05:51] LABS: Anion Gap 15 mmol/L (10-20); BUN (Urea Nitrogen) 33 mg/dL (9.8-20.1); Calc. Creatinine Clearance 60 mL/min (70-130); Calcium 9.1 mg/dL (7.8-10.44); Carbon Dioxide 21 mmol/L (23-31); Chloride 105 mmol/L (98-107); Estimated GFR-MDRD 64; Glucose 80 mg/dL (83-110); Magnesium 2.7 mg/dL (1.6-2.6); Phosphorus 3.8 mg/dL (2.3-4.7); Potassium 4.8 mmol/L (3.5-5.1); Sodium 136 mmol/L (136-145)
[2018-06-11] MEDS: Ibuprofen 600 MG TAB PO SCH ×3 (05:52→14:15)
[2018-06-11] MEDS ORDERED: Polyethylene Glycol 3350 17 GM Packet PO SCH (09:00)
[2018-06-11] MEDS ORDERED: Senokot 8.6 MG TAB PO SCH (09:00)
[2018-06-11] MEDS ORDERED: Cholestyramine/Aspartame 4 gm Packet PO SCH (09:00)
[2018-06-11] MEDS: Cyclobenzaprine 10 MG TAB PO SCH (09:51)
[2018-06-11] MEDS: Hydroxyurea 500 MG CAP PO SCH (09:52)
[2018-06-11] MEDS: Famotidine 20 MG TAB PO SCH (09:55)
[2018-06-11] MEDS: Senokot S 8.6-50 MG TAB PO SCH (09:55)
[2018-06-11] MEDS: Apixaban 5 MG TAB PO SCH (09:55)
[2018-06-11 11:39] VITALS: BP 118/59; TEMP 98.2
--- NOTE | 2018-06-11 21:59 | DIS-2 ---
DATE OF ADMISSION: 06/07/2018 DATE OF DISCHARGE: 06/11/2018 RESIDENT: Kiera Lopez MD ADMITTING ATTENDING: Dr. Manjarrez. DISCHARGE ATTENDING: Dr. Mohamud. CONSULTATIONS: Orthopedic Surgery, PT/OT, Case Management. PROCEDURES: On 06/10/2018, TFN, right hip. PRIMARY DIAGNOSIS: Right intertrochanteric hip fracture, status post repair. SECONDARY DIAGNOSES: Multiple sclerosis, diverticulitis, Crohn's disease, and atrial fibrillation. DISCHARGE MEDICATIONS: 1. Eliquis 5 mg oral twice daily. 2. [place] 7.5/325 one tab oral every 8 hours as needed. 3. Motrin 600 mg oral every 8 hours. 4. Ultram 100 mg oral q.6 hours. 5. Hydrea 500 mg oral daily. 6. Cholestyramine 5 grams oral daily. 7. Tylenol Regular Strength 650 mg oral every 4 hours as needed. 8. Aspirin 325 mg oral daily as needed. DISCONTINUED MEDICATIONS: None. HISTORY OF PRESENT ILLNESS/HOSPITAL COURSE: This is a 77-year-old female with past medical history o f recent CVA with right-sided weakness, hypertension, diverticulitis, Crohn's disease, polycythemia, multiple sclerosis, patent PFO, breast cancer with resection in 1988 brought to the ED after a mechan ical fall. Patient was found to have a right comminuted intertrochanteric fracture. CT head was neg ative. Patient was also found to have an elevated white count likely due to stress and other labs we re unremarkable. Patient's Eliquis was discontinued prior to surgery. Patient was given pain medica tions for pain relief. Orthopedic surgery was consulted. Patient was taken to the OR by Dr. Liya luna for fixation of the fracture on 06/10/2018, no complications. Patient's Eliquis was restarted on 08/10/2017 post surgery. PT/OT were initiated post-procedure as well. Supportive management initiate d. Patient was pain controlled with [place], Ultram, Tylenol, Motrin. Continued incentive spirometry and pulmonary toileting. Case management helped with discharge planning and patient will be going to rehabilitation. On the day of discharge, patient was seen by Dr. Mohamud. Plan of care was discusse d with the patient at the bedside. All questions were answered at the time of exam. DISPOSITION: Stable. DISCHARGE INSTRUCTIONS: 1. Location: Rehab. 2. Diet: Regular with Ensure supplementation. 3. Activity: Weightbearing as tolerated with continued PT/OT. 4. Follow up with Dr. Humberto Guerrier within 1 week.
== END 2018-06-11 16:00 | DRG 481 ==
LOC: ERS 22:14 → SURG B 23:43
PROVIDERS: ADMIT Specialist; ATTEND Specialist
PROC: 0QH604Z Insertion of Internal Fixation Device into Right Upper Femur, Open Approach (ICD-10-PCS; principal; 2018-06-09)
DX: S72.141A Displaced intertrochanteric fracture of right femur, initial encounter for closed fracture (principal); I69.351 Hemiplegia and hemiparesis following cerebral infarction affecting right dominant side; K50.90 Crohn's disease, unspecified, without complications; I10 Essential (primary) hypertension; D45 Polycythemia vera; G35 Multiple sclerosis; Z85.3 Personal history of malignant neoplasm of breast; Z87.891 Personal history of nicotine dependence; I48.91 Unspecified atrial fibrillation; W01.0XXA Fall on same level from slipping, tripping and stumbling without subsequent striking against object, initial encounter; Y92.009 Unspecified place in unspecified non-institutional (private) residence as the place of occurrence of the external cause; Z79.01 Long term (current) use of anticoagulants; Z79.899 Other long term (current) drug therapy
CPT/HCPCS: 36415; 51702; 70450; 71045; 72170; 76001; 80048; 80053; 81003; 81015; 82553; 83735; 84100; 84484; 85025; 85610; 85730; 93005; 96374; 96375; 96376; C1713; C1769; G8978-GP-CK; G8979-GP-CI; G8987-GO-CL; G8988-GO-CJ; J1100; J1650; J1885; J2001; J2270; J2405; J2704; J3010; J3475; J7050